=== PATIENT | male | born 1975 | race African-American/Black ===

== ENCOUNTER 2017-08-28 01:08 | Inpatient (IN) | payer MEDICAID ==
[2017-08-28] MEDS ORDERED: NITROGLYCERIN 0.4 MG BTL SL ONE (01:20)
--- NOTE | 2017-08-28 01:21 | EDPHY ---
H & P HPI/ROS: Chief Complaint: Chest pain HPI: 42-year-old male with a history of coronary artery disease, schizophrenia went [facility] tenderness evening because he has run out of his psych meds. There he had told them if he been having chest pain since yesterday morning. Patient states that he had started developing chest pain while shoveling snow yesterday morning. Is been constant but intermittent since that time. He states that he had a heart attack wall [place], [facility] 2 years ago. At that time he had a catheterization and had stents placed. Pain is about a 5/10. Is worse when he exerts himself. He has a family history of coronary artery disease. He also smokes cigarettes. He is been in [place] for about 2 months. He states that he tried to go to the [facility] earlier yesterday evening but they were closed. No nausea or vomiting. Some shortness of breath. Paramedics state that the patient was diaphoretic on arrival. He was given 324 mg of aspirin by EMS. ROS: 10 point Review of Systems is negative except as noted in the HPI. PMH: Coronary artery disease status post NH, schizophrenia Social History: Positive smoking, no alcohol, no recreational drug use Family History: non-contributory Physical Exam: Gen: Awake, Alert, No Distress, morbidly obese HEENT: Nose: no rhinorrhea Eyes: PERRLA, EOMI Mouth: Moist mucosa Neck: Supple, no JVD Chest: nontender, lungs clear to auscultation Heart: S1, S2 normal, no murmur Abd: Soft, non-tender, no guarding Back: no CVA tenderness, no midline tenderness Ext: no edema, non-tender Skin: no rash Neuro: CN II-XII intact, Sensation grossly intact, Strength 5/5 in bilateral upper and lower extremities Constitutional: Initial Vital Signs Temperature (C) 37.3 C 08/28/17 01:28 Heart Rate 110 H 08/28/17 01:28 Respiratory Rate 20 08/28/17 01:28 Blood Pressure 156/97 H 18 01:28 O2 Sat (%) 95 08/28/17 01:28 O2 Delivery Mode Room Air Allergies/Adverse Reactions: No Known Allergies Allergy (Unverified 08/28/17 01:28) Home Medications: Medication Instructions Recorded NK [No Known Home Meds] 08/28/17 Medical Decision Making - Diagnostics EKG Interpretation: ECG time 1:24 a.m., he has sinus tachycardia with a rate of 109, there are T- wave inversions with some small amount of ST depression in leads to 3 and AVF. No acute ST elevations. Imaging Results: Chest x-ray is limited by body habitus. There is cardiomegaly. No acute infiltrate or evidence of CHF. Imaging: I viewed and interpreted images myself ED Course/Re-evaluation: 42-year-old male presenting with chest pain intermittently since yesterday. Has a history of coronary artery disease. ECG is not normal. Troponin is negative. Will admit to the hospital for further evaluation. - Data Points Laboratory Results: Laboratory Results 08/28/17 01:20 08/28/17 01:20 08/28/17 08/28/17 01:20 01:20 WBC 7.47 10^3/uL 10^3/uL (3.80-9.50) RBC 5.67 10^6/uL 10^6/uL (4.40-6.38) Hgb 16.1 g/dL g/dL (13.7-17.5) Hct 49.0 % % (40.0-51.0) MCV 86.4 fL fL (81.5-99.8) MCH 28.4 pg pg (27.9-34.1) MCHC 32.9 g/dL g/dL (32.4-36.7) RDW 14.1 % % (11.5-15.2) Plt Count 343 10^3/uL 10^3/uL (150-400) MPV 10.1 fL fL (8.7-11.7) Neut % (Auto) 70.4 % % (39.3-74.2) Lymph % (Auto) 15.4 % % (15.0-45.0) Dixie % (Auto) 12.4 % % (4.5-13.0) Eos % (Auto) 1.1 % % (0.6-7.6) Baso % (Auto) 0.4 % % (0.3-1.7) Nucleat RBC Rel Count 0.0 % % (0.0-0.2) Absolute Neuts (auto) 5.26 10^3/uL 10^3/uL (1.70-6.50) Absolute Lymphs (auto) 1.15 10^3/uL 10^3/uL (1.00-3.00) Absolute Monos (auto) 0.93 10^3/uL H 10^3/uL (0.30-0.80) Absolute Eos (auto) 0.08 10^3/uL 10^3/uL (0.03-0.40) Absolute Basos (auto) 0.03 10^3/uL 10^3/uL (0.02-0.10) Absolute Nucleated RBC 0.00 10^3/uL 10^3/uL (0-0.01) Immature Gran % 0.3 % % (0.0-1.1) Immature Gran # 0.02 10^3/uL 10^3/uL (0.00-0.10) Sodium 138 mEq/L mEq/L (135-145) Potassium 4.3 mEq/L mEq/L (3.5-5.2) Chloride 105 mEq/L mEq/L (97-110) Carbon Dioxide 17 mEq/l L mEq/l (22-31) Anion Gap 16 mEq/L mEq/L (8-16) BUN 17 mg/dL mg/dL (7-23) Creatinine 0.8 mg/dL mg/dL (0.7-1.3) Estimated GFR > 60 Glucose 112 mg/dL H mg/dL (70-100) Calcium 9.6 mg/dL mg/dL (8.5-10.4) Troponin I < 0.012 ng/mL ng/mL (0.000-0.034) Medications Given: Discontinued Medications Nitroglycerin (Nitrostat) 0.4 mg SL EDNOW ONE Stop: 08/28/17 01:21 Last Admin: 08/28/17 01:51 Dose: 1 tab Departure - Departure Disposition: [facility] In[facility] Acute Clinical Impression: Chest pain Condition: Fair Referrals: Patient,NotPresent [Unknown] - As per Instructions
--- NOTE | 2017-08-28 01:27 | CPEKG ---
Heart Rate: 109 RR Interval: 550 P-R Interval: 156 QRSD Interval: 94 QT Interval: 356 QTC Interval: 480 P Kite: 70 QRS Kite: 86 T Wave Kite: -31 EKG Severity - ABNORMAL ECG - EKG Impression: SINUS TACHYCARDIA EKG Impression: ABNORMAL T, CONSIDER ISCHEMIA, INFERIOR LEADS EKG Impression: BORDERLINE PROLONGED QT INTERVAL Electronically Signed By: Nahun Salazar 28-Aug-2017 02:44:10
[2017-08-28 01:31] LABS: PLATELET COUNT 343 10^3/uL (150-400)
[2017-08-28] MEDS ORDERED: ONDANSETRON 4 MG/2 ML VIAL IVP PRN (02:10)
[2017-08-28] MEDS ORDERED: ONDANSETRON DISINTEGRATING 4 MG TAB PO PRN (02:10)
[2017-08-28] MEDS ORDERED: ACETAMINOPHEN 325 MG TAB PO PRN (02:10)
--- NOTE | 2017-08-28 02:37 | PDGENHP ---
History and Physical - Chief Complaint Chest pain - History of Present Illness 42 yo M w/ hx of CAD and schizophrenia presents after episode of chest pain. Patient is moderately decompensated from a psychiatric standpoint so obtaining history was difficult; however, his thinking is organized enough to provide some details. He explains that he had a heart attack at age 40. He has family hx of CAD in his father. He reports he had two stents placed and was prescribed Plavix, a statin, and nitroglycerin. He has not had these meds for some time although he thinks he is still supposed to be on them. He missed an appointment with [facility] today for psychiatric medication. He thinks he was previously on Prozac, Klonopin, and Seroquel but is not certain. While in the ED he describes an episode of chest pain that occurred while shoveling snow yesterday morning. He has a difficult time characterizing the episode due to disorganized thought. He is currently chest pain free. He is oriented but with some disorganized thinking and admits to hearing voices and seeing shadows. He denies SI/HI. History Information - Allergies/Home Medication List Allergies/Adverse Reactions: No Known Allergies Allergy (Unverified 08/28/17 01:28) Home Medications: NK [No Known Home Meds] 08/28/17 [Last Taken Unknown] I have personally reviewed and updated: family history, medical history - Past Medical History coronary artery disease (UT at age 40 with 2 stents placed) - Family History Positive for: CAD - Social History Smoking Status: Current every day smoker Review of Systems Review of Systems: ROS: 10pt was reviewed & negative except for what was stated in HPI & below Physical Exam Physical Exam: Temp Pulse Resp BP Pulse Ox 37.3 C 111 H 16 140/83 H 93 08/28/17 01:33 08/28/17 02:29 08/28/17 02:29 08/28/17 02:29 08/28/17 02:29 Constitutional: not in pain, obese Eyes: PERRL, EOMI Ears, Nose, Mouth, Throat: moist mucous membranes, no oral mucosal ulcers Cardiovascular: regular rate and rhythym, no murmur, rub, or gallop Respiratory: no respiratory distress, clear to auscultation Gastrointestinal: normoactive bowel sounds, soft, non-tender abdomen Skin: warm, normal color Musculoskeletal: full muscle strength, no muscle tenderness Neurologic: AAOx3, CN II-XII Intact Psychiatric: flat affect, other (Disorganized thinking, +hallucinations), No suicidal ideation, No agitated Lab Data & Imaging Review 08/28/17 01:20 08/28/17 01:20 WBC 7.47 10^3/uL (3.80-9.50) 08/28/17 01:20 RBC 5.67 10^6/uL (4.40-6.38) 08/28/17 01:20 Hgb 16.1 g/dL (13.7-17.5) 08/28/17 01:20 Hct 49.0 % (40.0-51.0) 08/28/17 01:20 MCV 86.4 fL (81.5-99.8) 08/28/17 01:20 MCH 28.4 pg (27.9-34.1) 08/28/17 01:20 MCHC 32.9 g/dL (32.4-36.7) 08/28/17 01:20 RDW 14.1 % (11.5-15.2) 08/28/17 01:20 Plt Count 343 10^3/uL (150-400) 08/28/17 01:20 MPV 10.1 fL (8.7-11.7) 08/28/17 01:20 Neut % (Auto) 70.4 % (39.3-74.2) 08/28/17 01:20 Lymph % (Auto) 15.4 % (15.0-45.0) 08/28/17 01:20 Cotton % (Auto) 12.4 % (4.5-13.0) 08/28/17 01:20 Eos % (Auto) 1.1 % (0.6-7.6) 08/28/17 01:20 Baso % (Auto) 0.4 % (0.3-1.7) 08/28/17 01:20 Nucleat RBC Rel Count 0.0 % (0.0-0.2) 08/28/17 01:20 Absolute Neuts (auto) 5.26 10^3/uL (1.70-6.50) 08/28/17 01:20 Absolute Lymphs (auto) 1.15 10^3/uL (1.00-3.00) 08/28/17 01:20 Absolute Monos (auto) 0.93 10^3/uL (0.30-0.80) H 08/28/17 01:20 Absolute Eos (auto) 0.08 10^3/uL (0.03-0.40) 08/28/17 01:20 Absolute Basos (auto) 0.03 10^3/uL (0.02-0.10) 08/28/17 01:20 Absolute Nucleated RBC 0.00 10^3/uL (0-0.01) 08/28/17 01:20 Immature Gran % 0.3 % (0.0-1.1) 08/28/17 01:20 Immature Gran # 0.02 10^3/uL (0.00-0.10) 08/28/17 01:20 Sodium 138 mEq/L (135-145) 08/28/17 01:20 Potassium 4.3 mEq/L (3.5-5.2) 08/28/17 01:20 Chloride 105 mEq/L (97-110) 08/28/17 01:20 Carbon Dioxide 17 mEq/l (22-31) L 08/28/17 01:20 Anion Gap 16 mEq/L (8-16) 08/28/17 01:20 BUN 17 mg/dL (7-23) 08/28/17 01:20 Creatinine 0.8 mg/dL (0.7-1.3) 08/28/17 01:20 Estimated GFR > 60 08/28/17 01:20 Glucose 112 mg/dL (70-100) H 08/28/17 01:20 Calcium 9.6 mg/dL (8.5-10.4) 08/28/17 01:20 Troponin I < 0.012 ng/mL (0.000-0.034) 08/28/17 01:20 Visualized and Interpreted EKG results: Yes EKG Interpretation: Positive for: other (Inferior T wave abnormalities) Assessment & Plan Assessment: 42 yo M w/ CAD and schizophrenia presents with chest pain and decompensated psychiatric disease. Plan: 1. Chest pain - Difficult to clearly characterize episode due to patient's mental health disease. He does convincingly describe prior hx of CAD with stenting. Noting hx of CAD, medication non-compliance, onset of pain with exercise, obesity, and ongoing tobacco use the risk is high enough to warrant inpatient risk stratification. Initial troponin negative and ECG (poor quality) with inferior T wave abnormalities. - Monitor on telemetry, trend cardiac enzymes - Will repeat ECG in AM - Will order nuclear stress study 2. Hx CAD - Patient reports UT at age 40 with 2 stents placed. He was previously on Plavix, statin, and NTG. - Acute work-up as above - Will benefit from at least ASA and statin on discharge 3. Schizophrenia - Appears moderately decompensated at this time with disorganized thought and active hallucinations. Patient is calm and denies SI/ HI. He thinks he may have been on Prozac, Klonopin, and Seroquel in the past but is not certain. - Will order Zyprexa 5 mg x1 for now for temporary relief - Psychiatry consult in the morning Diet - NPO pending risk stratification Code - Full Ppx - LMWH Dispo - Admit to PCU under observation status
[2017-08-28] MEDS ORDERED: OLANZapine 5 MG TAB PO ONE (02:46)
[2017-08-28 05:07] LABS: PLATELET COUNT 340 10^3/uL (150-400)
--- NOTE | 2017-08-28 08:46 | CPEKG ---
Heart Rate: 106 RR Interval: 566 P-R Interval: 156 QRSD Interval: 92 QT Interval: 352 QTC Interval: 468 P Nikolski: 77 QRS Nikolski: 60 T Wave Nikolski: -17 EKG Severity - ABNORMAL ECG - EKG Impression: SINUS TACHYCARDIA EKG Impression: ATRIAL PREMATURE COMPLEX EKG Impression: NONSPECIFIC T ABNORMALITIES, INFERIOR LEADS Electronically Signed By: Lg Jiménez 28-Aug-2017 19:16:03
[2017-08-28] MEDS ORDERED: ENOXAPARIN 40 MG/0.4 ML SYR SC SCH (09:00)
--- NOTE | 2017-08-28 10:03 | HOSPPROG ---
Hospitalist Progress Note Assessment/Plan: # chest pain - high risk given history of stents - cards consult # CAD - stents 2 years ago - does not appear to be on appropriate meds # schizophrenia - very disorganized; endorses ongoing SI to me; off meds for some time - I think he is gravely disabled and represents a risk to himself - M1 hold, TLC eval when medically cleared; need psychiatry input regarding meds Objective: Vital Signs Temp Pulse Resp BP Pulse Ox 36.6 C 109 H 16 127/84 H 94 08/28/17 03:07 08/28/17 03:07 08/28/17 03:07 08/28/17 03:07 08/28/17 03:07 Laboratory Results 08/28/17 04:30 08/28/17 04:30 ICD10 Worksheet Patient Problems: Problems Problem Status Onset Chest pain Acute
[2017-08-28] MEDS: ATORVASTATIN CALCIUM 20 MG TAB PO SCH (10:26)
[2017-08-28] MEDS: CHLORTHALIDONE 25 MG TAB PO SCH (10:54)
[2017-08-28] MEDS: ASPIRIN EC 81 MG TAB PO SCH (11:34)
--- NOTE | 2017-08-28 11:45 | GCON ---
[f rep st] CONSULTATION DATE OF CONSULTATION: 08/28/2017 REASON FOR CONSULTATION: We were asked by Dr. Oleg Whitney to evaluate this patient for his epis ode of chest pain. HISTORY OF PRESENT ILLNESS: The patient is a 42-year-old male with apparently schizophrenia, who was admitted via the emergency department for chest pain. He reports having stents placed in 2016, just prior to leaving [place]. He describes to me, having a heart attack there. Patient is somewhat dis organized in his speech but does answer questions appropriately. He reports he has been off and on h omeless in [place] since 2016. He has been working as a area coordinator and last night was on the street and noted an episode of chest pain. He describes coming in not only due to the chest pain, but also felt like he was getting "frostbite." He denies any recurrent episodes of chest pain since what he asserts as a heart attack in 2016. He has not described any shortness of breath, presyncope, or sync ope. It is unclear if he has been compliant with his medications. PAST MEDICAL HISTORY: 1. CAD. 2. Schizophrenia. 3. Hypertension. 4. Dyslipidemia. FAMILY HISTORY: Coronary artery disease with father dying of a heart attack. SOCIAL HISTORY: Patient is homeless. He reports daily tobacco abuse. REVIEW OF SYSTEMS: As per HPI. A complete 10-point review of systems was obtained and is negative e xcept for what is dictated. Home medications are listed as amlodipine, chlorthalidone, atorvastatin, and amitriptyline. ALLERGIES: No known drug allergies. PHYSICAL EXAMINATION: VITAL SIGNS: BP of 159/101, heart rate of 107, respirations 18, O2 saturation 98% on room air. GENERAL: He is an male, obese, does not make eye contact. HEENT : Eyes are without scleral icterus. ENT: Mucous membranes are moist. HEART: Distant heart sounds with regular rate and rhythm. LUNGS: Diminished but clear. ABDOMEN: Obese, nontender, with normo active bowel sounds. SKIN: Warm and dry. PSYCH: Flat affect. Does not make eye contact. LABORATORY DATA: BMP with sodium 137, potassium 4.2, chloride 104, CO2 was 17, BUN 15, creatinine 0. 8, glucose of 98, magnesium 2.1. Troponins negative x2. Triglycerides 118, total cholesterol 137, H DL of 48, LDL of 66. CBC with WBC 6.87, hemoglobin 15.7, hematocrit 47.4, platelet count of 340. Te lemetry reviewed: There have been no events noted. A 12-lead ECG, personally interpreted, demonstra edward sinus tachycardia with a heart rate of [address]-T wave abnormalities. I discussed patient's care with Dr. Whitney. Chest x-ray from 08/28/2017, shows poor inspiration but no pneumonia or pleural effusion. IMPRESSION AND PLAN: The patient is a 42-year-old male, who is admitted with chest pain. It was dif ficult to elicit a description of his chest pain. 1. Chest pain. He describes a history of coronary artery disease. He has a negative ECG and enzyme s for acute myocardial infarction. We will proceed to nuclear stress testing with treadmill for furt her risk stratification. He should be optimized on medical therapy, including aspirin, which was not listed in his home medications. His blood pressure is also above goal. 2. Hypertension. Blood pressures have been elevated. Upon review of what is listed as his home med ications, he has listed amlodipine and chlorthalidone. Potentially JAYNE inhibitor or beta-lanre can be added to his medical regimen. We are starting him on aspirin therapy. 3. Dyslipidemia. LDL appears well controlled. More recommendations to follow further testing. /[id number]/MODL
[2017-08-28] MEDS ORDERED: REGADENOSON 0.4 MG/5 ML SYR IVP ONE (14:59)
--- NOTE | 2017-08-28 16:08 | PDCARST ---
CAR Stress Test Results Type of Stress Test: Lexiscan stress test Indication: chest pain Description of Procedure: After informed consent was obtained, pt was established to ECG, blood pressure, HR and oximetry monitoring. STRESS EKG AND HEMODYNAMIC DATA. Resting heart rate: 104 BPM. Resting ECG: SR. Resting blood pressure: 152/86 mmHg. O2 saturation at rest: 93%. Peak heart rate: 113 BPM. Peak blood pressure: 169/53 mmHg. Arrhythmias: none. Symptoms: The patient experienced no typical symptoms of angina during stress or recovery. Stress/Infusion ECG: No change in rhythm with no significant ST/T wave changes. Stress/infusion O2 saturation: 93% Impression: Uneventful Lexiscan infusion. Conclusion: Await nuclear images.
[2017-08-28] MEDS: ENOXAPARIN 60 MG/0.6 ML SYR SC SCH (20:49)
[2017-08-28] MEDS: AMITRIPTYLINE HCL 50 MG TAB PO SCH (20:50)
[2017-08-29] MEDS: ASPIRIN EC 81 MG TAB PO SCH (08:02)
[2017-08-29] MEDS: CHLORTHALIDONE 25 MG TAB PO SCH (08:03)
[2017-08-29] MEDS: ATORVASTATIN CALCIUM 20 MG TAB PO SCH (08:04)
[2017-08-29] MEDS: ENOXAPARIN 60 MG/0.6 ML SYR SC SCH ×2 (08:05→21:55)
[2017-08-29] MEDS ORDERED: IOPAMIDOL (ISOVUE 370) 100 ML BTL IV ONE (10:38)
--- NOTE | 2017-08-29 12:34 | ASMTCASEMG ---
Living Arrangements What is your living Answers: Alone arrangement? Who do you live with? Type Of Residence What kind of residence do Answers: Homeless you live in? Discharge Plan Comments Coordination Status Comments Notes: Patient is a 42yo single male with schizophrenia who presented with chest pain and a family hx for heart problems. Patient had 2 stents placed at age 40. Patient is on an M1 hold due to being moderately decompensated from a psychiatric standpoint. Patient has med cleared and TLC was contacted to get in touch with [facility] for the eval. CM will follow. Date Signed: 08/29/2017 12:34 PM Electronically Signed By:Jenn Robertson LCSW
[2017-08-29] MEDS ORDERED: NS 1,000 ML IV ONE (12:52)
--- NOTE | 2017-08-29 12:57 | HOSPPROG ---
Hospitalist Progress Note Assessment/Plan: # chest pain - negative stress, negative (though slightly non-diagnostic) CTA # tachycardia - unclear precipitant - doubt PE as CP completely resolved - trial of 1L NS - check echo, TSH - recheck labs tomorrow # CAD - stents 2 years ago - cont asa/statin - needs BB but do not want to cloud picture with tachycardia at this point # schizophrenia - much more organized today; will still continue M1 and request TLC consult when medically cleared Subjective: still tachycardic; denies CP Objective: Vital Signs Temp Pulse Resp BP Pulse Ox 36.6 C 100 19 163/98 H 94 08/29/17 11:48 08/29/17 11:48 08/29/17 11:48 08/29/17 11:48 08/29/17 11:48 Laboratory Results 08/28/17 04:30 08/28/17 04:30 08/28/17 08/29/17 08/30/17 05:59 05:59 05:59 Intake Total 1250 Output Total 700 Balance 550 - Physical Exam Constitutional: no apparent distress, other (obese) Eyes: anicteric sclera Ears, Nose, Mouth, Throat: hearing normal Cardiovascular: No edema Respiratory: no respiratory distress Gastrointestinal: No distension Genitourinary: No galvan in urethra Skin: warm Musculoskeletal: full muscle strength Neurologic: AAOx3 Psychiatric: interacting appropriately ICD10 Worksheet Patient Problems: Problems Problem Status Onset Chest pain Acute
--- NOTE | 2017-08-29 12:58 | ASMTCMCOM ---
CM Note CM Note Notes: Dr. Whitney rescinded the med clearance on patient due to new medical concerns. TLC was contacted to let them know patient is not ready for his eval yet. TLC will contact [facility]. CM will follow. Date Signed: 08/29/2017 12:57 PM Electronically Signed By:Jenn Robertson LCSW
[2017-08-29] MEDS: clonazePAM 0.5 MG TAB PO SCH ×2 (13:09→21:55)
--- NOTE | 2017-08-29 15:20 | PDMN ---
Medical Necessity Medical necessity: Change to IP, as of 08/29/17, per MD; Pt gravely disabled & endorses suicidal ideations; on M1 hold; meets IP criteria. Admit to ICU for close monitoring & Psych consult, as well as tx of tachycardia requiring further workup; hx schizophrenia & CAD s/p stents; per progress note & order
--- NOTE | 2017-08-29 15:25 | ECHO ---
[email or web address] [address] [address] Main: [phone] Fax: [email or web address] Echocardiogram Name: JUSTO AGRAWAL MR#: [id number] Study Date: 08/29/2017 Study Time: 01:26 PM Date of : 1975 Age: 42 year(s) Height: 182.9 cm (72 in.) Weight: 172.82 kg (381 lb.) BSA: 2.8 m2 Gender: Male Examination: Echo Indication: Tachycardia Image Quality: Contrast: Requested by: Oleg Whitney BP: 154 mmHg/91 mmHg Heart Rate: Rhythm: Tachycardia Indication: Tachycardia Procedure Staff Pulling Unit Operator: Tyler Ambriz RDCS Reading Physician: Aysha Rosa Requesting Provider: Conclusions: Normal size left ventricle. Mild concentric LV hypertrophy. Normal global systolic LV function. EF is 75 %. No regional wall motion abnormality. Normal size right ventricle. Normal RV function. No significant valvular disease. No prior echo Measurements: Chambers Valvular Assessment AV/MV Valvular Assessment TV/PV Normal Normal Normal Name Value Range Name Value Range Name Value Range Ao Sridevi (MM): 3.9 cm (2.2 cm-3.7 AV Vmax: 1.25 m/s (1 m/s-1.7 PV Vmax: 1.10 m/s (0.6 m/s-0.9 cm) m/s) m/s) IVSd (2D): 1.0 cm (0.6 cm-1.1 AV maxP mmHg ( - ) PV PGmax: 5 mmHg ( - ) cm) LVOT Vmax: 1.02 m/s (0.7 m/s-1.1 LVDd (2D): 5.6 cm (4.2 cm-5.9 m/s) cm) MV E Vmax: 1.03 m/s ( - ) LVDs (2D): 3.1 cm (2.1 cm-4 MV A Vmax: 1.02 m/s ( - ) cm) MV E/A: 1.01 ( - ) LVPWd (2D): 1.2 cm (0.6 cm-1 cm) LVEF (2D): 75 (>=54 %) Continued Measurements: Chambers Valvular Assessment AV/MV Name Value Name Value LADs Lon.6 cm MV E/E' Septal: 17.90 Patient: JUSTO AGRAWAL Study Date: 08/29/2017 Page 1 of 2 01:26 PM LA Area: 20.6 cm2 MV E/E' Lateral: 11.50 Findings: Left Ventricle: Normal size left ventricle. Mild concentric LV hypertrophy. Normal global systolic LV function. EF is 75 %. No regional wall motion abnormality. Right Ventricle: Normal size right ventricle. Normal RV function. Left Atrium: The left atrium is normal in size. Right Atrium: The right atrium is normal in size. Mitral Valve: The mitral valve is normal in appearance and function. There is no mitral valve regurgitation. Aortic Valve: The aortic valve is tri-leaflet and functions normally. Tricuspid Valve: The tricuspid valve is normal in appearance and function. Pulmonic Valve: The pulmonic valve is normal in appearance and function. Aorta: The aorta is normal. Pericardium: No pericardial effusion. (No Signature Object) Patient: JUSTO AGRAWAL Study Date: 08/29/2017 Page 2 of 2 01:26 PM [id number]
[2017-08-29] MEDS: FLUoxetine 20 MG CAP PO SCH (16:10)
[2017-08-29] MEDS ORDERED: PRAZOSIN HCL 1 MG CAP PO SCH (21:00)
[2017-08-29] MEDS: AMITRIPTYLINE HCL 50 MG TAB PO SCH (21:55)
[2017-08-30 06:03] LABS: PLATELET COUNT 255 10^3/uL (150-400)
[2017-08-30] MEDS: ENOXAPARIN 60 MG/0.6 ML SYR SC SCH (09:09)
[2017-08-30] MEDS: clonazePAM 0.5 MG TAB PO SCH (09:09)
[2017-08-30] MEDS: CHLORTHALIDONE 25 MG TAB PO SCH (09:09)
[2017-08-30] MEDS: ASPIRIN EC 81 MG TAB PO SCH (09:09)
[2017-08-30] MEDS: FLUoxetine 20 MG CAP PO SCH (09:09)
[2017-08-30] MEDS: ATORVASTATIN CALCIUM 20 MG TAB PO SCH (09:09)
[2017-08-30 09:30] VITALS: BP 137/75; PULSE 95; RESP 19; TEMP 98.8; O2SAT 92
--- NOTE | 2017-08-30 11:34 | ASMTCMCOM ---
CM Note CM Note Notes: Spoke with Kari from [facility] who will be evaluating patient today. She will let me know the disposition of eval as soon as she is finished. CM will follow. Date Signed: 08/30/2017 11:33 AM Electronically Signed By:Jenn Robertson LCSW
--- NOTE | 2017-08-30 16:11 | GDS ---
[f rep st] DISCHARGE SUMMARY FINAL DIAGNOSES: 1. Disorganized thinking due to schizophrenia. 2. Chest pain. 3. History of coronary artery disease, status post stents in 2013. 4. Tachycardia. HOSPITAL COURSE: A 42-year-old man with a history of heart disease presents with chest pain. He had difficulty describing exactly the incidence in which this occurred. He was evaluated with a Lexisca n test which was negative. He had a CT angiogram which was somewhat nondiagnostic given his difficul ty holding his breath; however, there were no segmental pulmonary embolus seen, and suspicion that th ere were no subsegmental. He remained tachycardic for about 24-48 hours; however, this had resolved prior to discharge. This was sinus tachycardia. Suspect that this is more likely anxiety than a jose c e underlying medical reason. He was somewhat disorganized when I first met him. Because of this, I put him on an M1 hold. After he was medically cleared, he was seen by [facility], who recommended Inpatient Psychiatry for stabilization. He will be discharged from here to [address] [place] [address]. He is comfor table with this plan and accepting of this. RECOMMENDATIONS: For his underlying heart disease including coronary artery disease with 2 stents, I recommend that he follow up with Cardiology. I have given him a referral to see MOLLY Da Silva, who he saw here in about 1 month to establish care. He clearly needs a local core cutter. I have started him on aspirin and continued his statin. I spent more than 30 minutes on the day of discharge coordinating care. /[id number]/MODL
== END 2017-08-30 17:15 | DRG 313 ==
LOC: EEVIPCON 02:10 → F2W 02:42 → F2N 10:09 → OBSVTOIN 08-29 12:57
PROVIDERS: ADMIT Student in an Organized Health Care Education/Training Program; ATTEND Student in an Organized Health Care Education/Training Program
DX: R07.9 Chest pain, unspecified (principal); F20.9 Schizophrenia, unspecified; I25.10 Atherosclerotic heart disease of native coronary artery without angina pectoris; R00.0 Tachycardia, unspecified; I25.2 Old myocardial infarction; E66.9 Obesity, unspecified; Z72.0 Tobacco use; Z59.0 Homelessness; Z95.5 Presence of coronary angioplasty implant and graft
CPT/HCPCS: A9500; G0378; J1650; J2785; Q9967

== ENCOUNTER 2017-08-30 17:10 | Inpatient (IN) | payer MEDICAID ==
[2017-08-30] MEDS ORDERED: MAGNESIUM HYDROXIDE 30 ML UDCUP PO PRN (18:26)
[2017-08-30] MEDS ORDERED: MAG HYDROX/AL HYDROX/SIMETH 30 ML UDCUP PO PRN (18:26)
[2017-08-30] MEDS: PRAZOSIN HCL 1 MG CAP PO SCH (21:52)
[2017-08-30] MEDS: clonazePAM 0.5 MG TAB PO SCH (21:53)
[2017-08-31] MEDS: ACETAMINOPHEN 325 MG TAB PO PRN (02:53)
[2017-08-31] MEDS: LORazepam 0.5 MG TAB PO PRN ×3 (02:53→20:06)
[2017-08-31] MEDS: amLODIPine BESYLATE 5 MG TAB PO SCH (08:14)
[2017-08-31] MEDS: FLUoxetine 20 MG CAP PO SCH (08:17)
[2017-08-31] MEDS: clonazePAM 0.5 MG TAB PO SCH ×2 (08:18→22:08)
[2017-08-31] MEDS: CHLORTHALIDONE 25 MG TAB PO SCH (08:18)
[2017-08-31] MEDS: ATORVASTATIN CALCIUM 20 MG TAB PO SCH (08:19)
[2017-08-31] MEDS: ASPIRIN EC 81 MG TAB PO SCH (08:20)
[2017-08-31] MEDS ORDERED: PNEUMOCOCCAL 0.5ML VACCINE VIAL IM ONE (10:01)
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
--- NOTE | 2017-08-31 17:36 | BCON ---
[f rep st] BEHAVIORAL HEALTH CONSULTATION INTERNAL MEDICINE CONSULTATION DATE OF CONSULTATION: 08/31/2017 REFERRING PHYSICIAN: Wade Layne MD REASON FOR REFERRAL: Medical clearance for inpatient behavioral [facility] stay. HISTORY OF PRESENT ILLNESS: [facility] for which he was admitted to [facility]. There, he was noted to be mentally disorganized and was put on an M1 hold. After he had been fully evaluated for the chest pain, he was transferred to [facility] for further psychiatric care. He currently has no acute complaints though he reports that he is "working to get my mind calibrated." PAST MEDICAL HISTORY: Coronary artery disease, status post OR. Schizophrenia. PAST SURGICAL HISTORY: He had coronary artery stenting approximately 2 years ago. MEDICATIONS: He was not taking any medications prior to admission. ALLERGIES: There are no known drug allergies. SOCIAL HISTORY: He is currently homeless. He has been in [place] approximately 2 years. He came here with his brother. He is a cigarette smoker. FAMILY HISTORY: Noncontributory for the purposes of this evaluation. REVIEW OF SYSTEMS: He reports he has been trying to lose weight, but has not had weight loss. He denies fevers, chills, cough, dyspnea. Chest pain has resolved. There are no palpitations. He reports that he snores and he reports that he does not feel refreshed when he awakens in the morning. He denies nausea , vomiting, constipation, or diarrhea. Otherwise, a 10-point review of systems is negative. PHYSICAL EXAM: VITAL SIGNS: Blood pressure is 132/71, heart rate is 94, respiratory rate is 16, oxygen saturation is 97% on room air, temperature is 36.4 degrees centigrade. His weight is 172.8 kg for a body mass index of 51. GENERAL: This is an extremely obese man ambulating in the hallway. We go to his room for the medical evaluation and he sits in a chair, appears his chronologic age. HEENT: Extraocular movements are intact. Mucous membranes are moist. He has a crowded airway, Mallampati class 3. Dentition is in good condition. NECK: Full and supple. HEART: There is a regular rate and rhythm with no murmurs, rubs , or gallops. LUNGS: Clear to auscultation bilaterally. ABDOMEN: Benign. EXTREMITIES: There is no cyanosis or clubbing. There is 1+ edema bilaterally to the lower extremities. NEUROLOGIC: He is alert and oriented x3. Cranial nerves 2 -12 are grossly intact. There is no focal weakness. Sensation is intact to light touch. Gait is somewhat wide-based, otherwise within normal limits. LABORATORY STUDIES: From his recent stay in the hospital: CBC was overall within normal limits. On the day before transfer, he had a very slightly low WBC count at 3.52 of no clinical significance. Coagulation studies revealed an elevated D-dimer. Serum chemistry on 08/30, revealed normal renal function and electrolytes. AST was elevated at 107, and ALT at 74. He had a slightly low albumin of 3.4. Liver function tests were otherwise within normal limits. Troponins were negative. Lipid panel was benign with a total cholesterol of 137 , an LDL of 66 and an HDL of 48. TSH was normal at 2.54. He had a CT angiogram to exclude pulmonary embolus as a cause of the chest pain. He was not compliant with holding his breath. There were no segmental pulmonary emboli. Subsegmental pulmonary emboli could not be completely excluded. EKG showed normal sinus rhythm with a nonspecific intraventricular conduction delay. Chest x-ray showed poor inspiration and cardiomegaly. Echocardiogram was read as normal with an ejection fraction of 75%. There was no comment made regarding diastolic function or pulmonary artery pressures. ASSESSMENT/RECOMMENDATIONS: 1. Schizophrenia with decompensation and medical noncompliance, pending further evaluation and management per Psychiatry and the mental health team. 2. Obesity. Consider avoiding medications that would cause further weight gain ; however, psychosocial stabilization takes priority at this time. 3. Tobacco dependence syndrome: Encouraged smoking cessation. 4. Coronary artery disease, status post stenting. 5. Risk for sleep apnea. Advise a sleep study after discharge. I see no medical contraindications to this patient's continued stay on the inpatient behavioral health unit or to any psychiatric medications or procedures. Thank you very much for including me in the care of this patient and please do not hesitate to contact me or the hospitalist service should there be need for further medical evaluation. /[id number]/MODL MTDD
[2017-08-31] MEDS: OLANZapine DISINTEGR 10 MG TAB PO PRN (20:04)
[2017-08-31] MEDS: PRAZOSIN HCL 1 MG CAP PO SCH (22:08)
[2017-09-01] MEDS: clonazePAM 0.5 MG TAB PO SCH ×2 (08:22→18:48)
[2017-09-01] MEDS: FLUoxetine 20 MG CAP PO SCH (08:22)
[2017-09-01] MEDS: CHLORTHALIDONE 25 MG TAB PO SCH (08:22)
[2017-09-01] MEDS: amLODIPine BESYLATE 5 MG TAB PO SCH (08:22)
[2017-09-01] MEDS: ASPIRIN EC 81 MG TAB PO SCH (08:22)
[2017-09-01] MEDS: ATORVASTATIN CALCIUM 20 MG TAB PO SCH (08:22)
[2017-09-01] MEDS: OLANZapine DISINTEGR 10 MG TAB PO PRN ×2 (08:25→12:31)
[2017-09-01] MEDS: ACETAMINOPHEN 325 MG TAB PO PRN ×2 (08:25→12:31)
[2017-09-01] MEDS: NICOTINE POLACRILEX 2 MG GUM B PRN (10:41)
--- NOTE | 2017-09-01 11:45 | SOAPPROG ---
SOAP Progress Note Assessment/Plan: Assessment: 42yo AAM with hx of SZA d/o and possibly PTSD also hx of substance use admitted initially medically for r/o MS but then reported SI prior to medical d/c. In [place] x 2yr, from [place]. Homeless. 09/01/17 11:25 per staff, slept 6hr. took prn this AM Pt reports being in hosp ?because I was stressed out, worried I has having a heart attack...that gave me a panic attack" States he likes current meds, finds them helpful, "slept like a rock" last night. Does not want to lose [facility] bed at the detention. Talked of coming from [place] to [place] with brother, was in [place] for some time receiving care at [facility] , then to [facility], now in [place]. Has been homeless, indicated homelessness in [place] was "rough". Admitted to long hx of substance use, mostly cocaine, not recently. more recently THC and admitted coming to [place] in part b/c of legal THC. When discussing meds, pt asked "I would like a prescription for chronic pain...low back, joints, ankles, gout". States he used to take Gabapentin and received medications from [facility]. Sitting comfortably during interview. Engaged, good EC, nml speech, mood "good" , altho a little sleepy. TP/TC- denied any current AH/VH or any SI. no thoughts to harm others. did not appear responding to IS. linear, goal-directed responses. somewhat vague. no delusional thoughts expressed. Plan: -during weekday, contact [facility] for collateral. Seems he was receiving treatment there for some time after arriving in [place] 2 yr ago. -continue current meds. -prob needs outpt sleep study b/c may have MONIK. could try nocturnal pOx for screening -will d/c prn zyprexa and discuss further with pt in am. received 10mg as prn during midday and slept upright on couch most of afternoon. no report of psychosis to staff. Objective: Vital Signs Temp Pulse Resp BP Pulse Ox 36.5 C 96 14 127/65 H 94 09/01/17 05:30 09/01/17 05:30 09/01/17 05:30 09/01/17 05:30 09/01/17 05:30 - Time Spent With Patient Time Spent With Patient: 25min - Pending Discharge Pending Discharge Within 24 Hours: No Pending Discharge Within 48 Hours: No ICD10 Worksheet Patient Problems: Problems Problem Status Onset Chest pain Acute
[2017-09-01] MEDS: PRAZOSIN HCL 1 MG CAP PO SCH (18:48)
[2017-09-01] MEDS: LORazepam 0.5 MG TAB PO PRN (22:21)
[2017-09-02] MEDS: LORazepam 0.5 MG TAB PO PRN (03:55)
[2017-09-02] MEDS: ACETAMINOPHEN 325 MG TAB PO PRN ×2 (05:06→08:52)
[2017-09-02] MEDS: clonazePAM 0.5 MG TAB PO SCH ×2 (08:02→21:13)
[2017-09-02] MEDS: FLUoxetine 20 MG CAP PO SCH (08:02)
[2017-09-02] MEDS: ATORVASTATIN CALCIUM 20 MG TAB PO SCH (08:02)
[2017-09-02] MEDS: amLODIPine BESYLATE 5 MG TAB PO SCH (08:02)
[2017-09-02] MEDS: CHLORTHALIDONE 25 MG TAB PO SCH (08:02)
[2017-09-02] MEDS: ASPIRIN EC 81 MG TAB PO SCH (08:03)
--- NOTE | 2017-09-02 19:42 | SOAPPROG ---
SOAP Progress Note Assessment/Plan: Assessment: 42yo AAM with hx of SZA d/o and possibly PTSD also hx of substance use admitted initially medically for r/o HI but then reported SI prior to medical d/c. In [place] x 2yr, from [place]. Homeless. 09/01/17 11:25 per staff, slept 6hr. took prn this AM Pt reports being in hosp ?because I was stressed out, worried I has having a heart attack...that gave me a panic attack" States he likes current meds, finds them helpful, "slept like a rock" last night. Does not want to lose his bed at the [facility]. Talked of coming from [place] to [place] with brother, was in [place] for some time receiving care at [facility] , then to [facility], now in [place]. Has been homeless, indicated homelessness in [place] was "rough". Admitted to long hx of substance use, mostly cocaine, not recently. more recently THC and admitted coming to [place] in part b/c of legal THC. When discussing meds, pt asked "I would like a prescription for chronic pain...low back, joints, ankles, gout". States he used to take Gabapentin and received medications from [facility]. Sitting comfortably during interview. Engaged, good EC, nml speech, mood "good" , altho a little sleepy. TP/TC- denied any current AH/VH or any SI. no thoughts to harm others. did not appear responding to IS. linear, goal-directed responses. somewhat vague. no delusional thoughts expressed. Plan: -during weekday, contact [facility] for collateral. Seems he was receiving treatment there for some time after arriving in [place] 2 yr ago. -continue current meds. -prob needs outpt sleep study b/c may have MONIK. could try nocturnal pOx for screening -will d/c prn zyprexa and discuss further with pt in am. received 10mg as prn during midday and slept upright on couch most of afternoon. no report of psychosis to staff. 09/02/17 19:18 slept 30min last night. woke up when staff checked noct pOx (97%) and had trouble returning to sleep .pt thinks he slept about 2hrs. did nap on couch most of afternoon sitting up. reports relieved still has [facility] bed, he called today to check. exercising 2x/ day on elliptical machine. denied med s/e or physical complaints at present altho with some mild chronic low back pain and some mild neuropathy sxs in extremities. asked for prn meds this am, unable to state why he felt he needed something. did not have prn zyprexa avail b/c d/cd. denied experiencing any AH/VH or thought d/o. states just wanted a prn "for stress" perhaps b/c didn't sleep well last night. Longest sobriety [id number] at [facility] in [place], [place]. reports was voluntary there. used cocaine before that. Meds then included prozac, prazosin, HTN med, and haldol with cogentin, but reports haldol was d/cd after 6mo and he didn't continue on antipsychotic. Recalls dx as "PTSD, Bipolar, schizophrenia- activity". Long hx of EtOH use d/o, also used cocaine at times, now mostly just THC and this is partly why he came to [place]. Trazodone used to help sleep. Would like for tonight. Also took Gabapentin PRN for pain, and would like this again, prefers scheduled. States Kimmy Oscar has records. Signed OMARI. States he took RISPERDAL as a kid, to help with his focus. (asked if he meant Ritalin, pt stated no, Risperdal). Admits experiencing psychotic sxs in past, not able to clearly state if each time clearly related to substance use, but suspects so. Wondering about med as "prevention". Discussed risks and indications. Asked about restarting STATIN med he used to take. Denied any med s/e. Reports he likes to have goals and work toward them. Per staff, pt had some goals listed in group- taking classes at [facility] online, getting bed [facility], and working 24hr/d. Also to go to [facility] and get a sleep study referral. Asked pt about these goals, he knows working 24hr not realistic, but would like to if he could. Denied any depression or SI, denied AH/VH or other psychotic sxs. mood "fine". affect very slightly irritable but denied feeling this way. States just didn't sleep much last night. Generally engaged, with linear thoughts, no IOR, no delusional thoughts. i/j both seem fair. cognition intact. PLAN: -Trazodone 50mg hs, with additional prn -Monitor for need of any neuroleptic or antipsychotic. reports hx of VIVIAN when young, also several times put on antipsychotic meds in the past, but also w/ subst use hx and hx of psychosis possibly related to subst use, noted with some mild irritability today asking for prn, and yesterday asked for prn for his "head" and received zyprexa. no clear psychotic sxs but reports hx of ptsd/bmd/ szp. Discussed options with patient, he agreed to Risperdal 0.5mg bid avail as prn for now. Prefer this to zyprexa or seroquel b/c of obesity. More records would be helpful, from [facility] and perhaps even [facility] in [place]. -requests to restart Gabapentin as scheduled med for neuropathy which he took as prn in past, will start 300mg BID -wants to restart statin he took as outpt. d/w primary team/hospitalist -plans to establish at [facility], wants referral for sleep study. has had this recommended several times in past he states. Objective: Vital Signs Temp Pulse Resp BP Pulse Ox 36.3 C 111 H 18 168/105 H 91 L 09/02/17 05:08 09/02/17 11:53 09/02/17 11:53 09/02/17 11:53 09/02/17 11:53 - Time Spent With Patient Time Spent With Patient: 35min - Pending Discharge Pending Discharge Within 24 Hours: No Pending Discharge Within 48 Hours: No ICD10 Worksheet Patient Problems: Problems Problem Status Onset Chest pain Acute
[2017-09-02] MEDS ORDERED: traZODone 50 MG TAB PO PRN (19:43)
[2017-09-02] MEDS ORDERED: risperiDONE 0.5 MG TAB PO PRN (19:44)
[2017-09-02] MEDS: traZODone 50 MG TAB PO SCH (21:13)
[2017-09-02] MEDS: PRAZOSIN HCL 1 MG CAP PO SCH (21:13)
[2017-09-02] MEDS: GABAPENTIN 300 MG CAP PO SCH (21:13)
[2017-09-03] MEDS: FLUoxetine 20 MG CAP PO SCH (09:18)
[2017-09-03] MEDS: amLODIPine BESYLATE 5 MG TAB PO SCH (09:18)
[2017-09-03] MEDS: ASPIRIN EC 81 MG TAB PO SCH (09:18)
[2017-09-03] MEDS: clonazePAM 0.5 MG TAB PO SCH ×2 (09:18→21:14)
[2017-09-03] MEDS: GABAPENTIN 300 MG CAP PO SCH ×2 (09:19→21:14)
[2017-09-03] MEDS: CHLORTHALIDONE 25 MG TAB PO SCH (09:19)
[2017-09-03] MEDS: ATORVASTATIN CALCIUM 20 MG TAB PO SCH (09:19)
--- NOTE | 2017-09-03 13:49 | SOAPPROG ---
JULIETA Progress Note Assessment/Plan: Assessment: Plan: 09/03/17 13:49 Schizoaffective D/o: Doing much better. CCM. Likely d/c tomorrow. Subjective: Pt seen, discussed with staff. Reports feeling "pretty good." States, he is "working on it." States he is "about ready to go." Appreciative of the care he has received here. He is agreeable to going to respite bed tomorrow. He has continued to participate actively in therapies, displayed no behavioral disturbances and is compliant with meds. He reports still feeling "a little paranoid." Objective: Vital Signs Temp Pulse Resp BP Pulse Ox 36.3 C 100 14 152/102 H 98 09/03/17 00:30 09/03/17 00:30 09/03/17 00:30 09/03/17 00:30 09/03/17 00:30 MSE: Calm, coop. Affect is euthymic, stable, approp. Mood is "pretty good." TP linear. TC reveals some ongoing paranoia. Denies SI. - Time Spent With Patient Time Spent With Patient: 25" ICD10 Worksheet Patient Problems: Problems Problem Status Onset Chest pain Acute
[2017-09-03] MEDS: traZODone 50 MG TAB PO SCH (21:16)
[2017-09-03] MEDS: PRAZOSIN HCL 1 MG CAP PO SCH (21:16)
[2017-09-04] MEDS: NICOTINE POLACRILEX 2 MG GUM B PRN (01:00)
[2017-09-04] MEDS: LORazepam 0.5 MG TAB PO PRN (03:42)
[2017-09-04 05:20] VITALS: BP 143/74; PULSE 113; RESP 16; TEMP 98.1; O2SAT 94
[2017-09-04] MEDS: ACETAMINOPHEN 325 MG TAB PO PRN (05:37)
[2017-09-04] MEDS: amLODIPine BESYLATE 5 MG TAB PO SCH (08:18)
[2017-09-04] MEDS: ASPIRIN EC 81 MG TAB PO SCH (08:18)
[2017-09-04] MEDS: clonazePAM 0.5 MG TAB PO SCH (08:18)
[2017-09-04] MEDS: FLUoxetine 20 MG CAP PO SCH (08:18)
[2017-09-04] MEDS: ATORVASTATIN CALCIUM 20 MG TAB PO SCH (08:18)
[2017-09-04] MEDS: GABAPENTIN 300 MG CAP PO SCH (08:18)
[2017-09-04] MEDS: CHLORTHALIDONE 25 MG TAB PO SCH (08:19)
--- NOTE | 2017-09-04 14:14 | BDS ---
[f rep st] [facility] DISCHARGE SUMMARY REASON FOR ADMISSION: Patient is a 42-year-old male admitted from the emergency dep artment after having come in complaining of chest pain. He has a history of some coronary artery dis ease with 2 stents placed in the past, at age 38, and was out shoveling snow and was afraid that he m ay be having a heart attack. He was admitted to the ICU where an NM was ruled out, and when they wer e preparing his discharge, he stated that he was suicidal. He was then placed on an M1 hold and a TL C consultation was requested. TLC recommended further psychiatric evaluation and hospitalization, an d he was transferred to the [facility] inpatient unit on at [address] [facility]. Full description of the events preceding admission can be found in his admission history dated 08/31/2017. ADMITTING DIAGNOSES: Schizoaffective disorder by history. Possible posttraumatic stress disorder. Recent suicidality. Homelessness. Obesity. Hypertension. Hyperlipidemia. Coronary artery disease . ADMISSION PHYSICAL EXAMINATION: Performed by Dr. Balta Sheridan revealed no acute physical findings . ADMISSION LABORATORY: No additional labs were drawn, though labs from his hospitalization in the ICU were reviewed. No significant abnormalities were noted. HOSPITAL COURSE: Patient was admitted to the [facility] inpatient unit on an M1 hold. He was pleasant, cooperative, and participated actively in all interviews and therapies. He stated that he felt unsafe in the community despite having been homeless for some time, and knowing the ins and outs of the nursing home and the other resources in the community. He stated initially that he was he aring voices telling him to kill himself, though later stated that these had gone away completely by the time he arrived on the unit. He requested to be restarted on his previous outpatient medications which included Prozac, clonazepam, Prazosin, and gabapentin. These were restarted. I discussed wit h him the potential use of an antipsychotic medication, which he declined, stating that they did not help him and that he did better on this regimen. I indicated to him that if he had worsened problems with the auditory hallucinations, we would likely have to use an antipsychotic, and he agreed to thi s but did not report any further hallucinatory experiences during his hospitalization. Patient's hospitalization was uncomplicated. He participated actively in all therapies and was compl iant with all medications. He was pleasant, cooperative, interactive throughout his stay and voiced no thoughts of suicide after the first day. As mentioned above, he did not have any further psychoti c symptoms after admission either. CONDITION AT DISCHARGE: Stable. His affect was euthymic, stable, and appropriate. His mood was rep orted as "really good" and he was looking forward to discharge, to return to the nursing home. He was off ered respite placement, though he declined this at the time of discharge. DISCHARGE MEDICATIONS: Gabapentin 300 mg p.o. twice daily, amlodipine 10 mg p.o. daily, Lipitor 20 m g p.o. daily, prazosin 1 mg p.o. at bedtime, Prozac 20 mg p.o. daily, Klonopin 0.5 mg twice daily, ch lorthalidone 12.5 mg p.o. daily, enteric-coated aspirin 81 mg daily. DISCHARGE DIAGNOSES: Schizoaffective disorder, depressed type, chronic, with acute exacerbation. Obe sity. Cardiac disease. Hyperlipidemia. Homelessness. Lack of supports. Recent suicidality. DISPOSITION: Patient left the hospital of his own accord, to return to the [facility]. FOLLOWUP: With [facility] as scheduled by manager of care. I can confirm that the patient received his discharge instructions and followup appointments at time of discharge. Patient's legal status was converted to voluntary at the expiration of his M1 hold. Patient's attitude was positive at the time of discharge. Patient did not have specific advance directives during his stay though was a full code throughout. There were no pending labs or studies at the time of discharge. /[id number]/MODL
== END 2017-09-04 10:01 | disposition home or self-care (01) | DRG 885 ==
LOC: BBEH 17:10
PROVIDERS: ADMIT Psychiatry & Neurology Psychiatry; ATTEND Psychiatry & Neurology Psychiatry
DX: F25.1 Schizoaffective disorder, depressive type (principal); I25.10 Atherosclerotic heart disease of native coronary artery without angina pectoris; E66.9 Obesity, unspecified; E11.9 Type 2 diabetes mellitus without complications; I10 Essential (primary) hypertension; J45.909 Unspecified asthma, uncomplicated; I25.2 Old myocardial infarction; F17.210 Nicotine dependence, cigarettes, uncomplicated; Z95.5 Presence of coronary angioplasty implant and graft; Z59.0 Homelessness
CPT/HCPCS: G0009

== ENCOUNTER 2017-10-26 16:59 | Emergency (ER) | payer MEDICAID ==
--- NOTE | 2017-10-26 17:25 | EDPHY ---
H & P Smoking Status: Current every day smoker Time Seen by Provider: 10/26/17 17:05 HPI/ROS: CHIEF COMPLAINT: Near-syncope, possible overdose HISTORY OF PRESENT ILLNESS: 42-year-old male presents to the emergency department by ambulance after possible drug overdose. The patient has a history of PTSD and bipolar and has been off of his medications. He has been hearing voices. He apparently restarted his medications today and says "I was trying to get a director diabetes on reality". He admits to taking too many of his pills around 1:00 p.m. today. He states that he was not suicidal or homicidal. He apparently told EMS that he was suicidal. The patient denies suicidal homicidal ideation now. He denies substance abuse or alcohol. He denies chest pain or difficulty breathing. He feels thirsty. He does not feel weak. He was feeling dizzy. He had a near syncopal episode today at the library and was brought to the emergency department for evaluation. No reported trauma. No headache. No nausea or vomiting. REVIEW OF SYSTEMS: Constitutional: No fever, no chills. Eyes: No double or blurry vision. ENT: No sore throat. Respiratory: No cough, no shortness of breath. Cardiac: No chest pain. Gastrointestinal: No abdominal pain, vomiting or diarrhea. Genitourinary: No dysuria. Musculoskeletal: No neck or back pain. Skin: No rashes. Neurological: No headache. (Amina Garner) Past Medical/Surgical History: PTSD, Bipolar (Patsy,Amina M) Social History: Homeless (Patsy,Amina M) Physical Exam: General Appearance: Alert, no distress. 103/73, heart rate 112, Eyes: Pupils equal and round. Extraocular motions are all intact. ENT: Mouth: Mucous membranes are dry appearing. Respiratory: No wheezing, rhonchi, or rales, lungs are clear to auscultation. Cardiovascular: Regular rate and rhythm. Gastrointestinal: Abdomen is soft and nontender, no masses, no rebound or guarding, bowel sounds normal. Neurological: Alert and oriented x 3, cranial nerves II through XII grossly intact Skin: Warm and dry, no rashes. Musculoskeletal: Nontender to palpate along the cervical, thoracic or lumbar spine. Neck is supple. Extremities: Full range of motion and no peripheral edema. Psychiatric: Patient is oriented X 3, there is no agitation. (Amina Garner) Constitutional: Initial Vital Signs Temperature (C) 36.9 C 10/26/17 16:59 Heart Rate 108 H 10/26/17 16:59 Respiratory Rate 16 10/26/17 16:59 Blood Pressure 148/87 H 10/26/17 16:59 O2 Sat (%) 93 10/26/17 16:59 O2 Delivery Mode Room Air O2 (L/minute) 2 Allergies/Adverse Reactions: No Known Allergies Allergy (Unverified 08/28/17 01:28) Home Medications: Medication Instructions Recorded Chlorthalidone [Chlorthalidone 25 12.5 mg PO DAILY #14 tab 09/04/17 mg (*)] FLUoxetine [Prozac 20 MG (*)] 20 mg PO DAILY #30 cap 09/04/17 Gabapentin [Neurontin 300 MG (*)] 300 mg PO BID #60 cap 09/04/17 Prazosin HCl [Minipress 1mg (*)] 1 mg PO HS #30 cap 09/04/17 amLODIPine BESYLATE [Norvasc 10 mg 10 mg PO DAILY #30 tab 09/04/17 (*)] Amitriptyline HCl [Elavil 50 mg 25 - 50 mg PO HS 10/26/17 (*)] Medical Decision Making ED Course/Re-evaluation: 7:00 a.m.-I assumed care of this patient at shift change. History of bipolar disorder, off medications. Plan for CSU placement. 12:30p: accepted to [facility]. EMTALA completed. (Linda Zeng) 42-year-old male who admits to taking too many of his medications as he has a history of PTSD and bipolar and wanted to get rid of the voices. He was restarted on his medications today. The patient has prescriptions that were all filled today, 10/26/2017 for amlodipine 10 mg with 29 of #30 tablets, chlorthalidone 25 mg 13 of #15 tablets, amitriptyline 50 mg 26 of #30 tablets, Fluoxetine 20 mg 28 of #30 tablets, Prazosin 1 mg 25 of #30 tablets, gabapentin 300 mg 52 of #60 tablets. I spoke with Zaki at [facility] at 7:50 p.m., case #[id number], who recommended monitoring for 6 hr from ingestion and repeating his EKG 6 hr post ingestion. Laboratory studies have been drawn iron are within normal limits. Repeat EKG was reviewed by Dr. Dino Bledsoe and revealed normal sinus rhythm and specifically no evidence of widened QRS. 11:12 p.m.: I spoke with mental health [facility]. They feel strongly that he should be placed in a crisis stabilization unit, however the on-call psychiatrist request that he be monitored overnight regarding his blood pressure. He will be re-evaluated in the morning with likely placement in a crisis stabilization unit. (Amina Garner) Differential Diagnosis: Altered mental status including but not limited to hypoglycemia, infectious process, electrolyte abnormality, head injury and intoxicants. (Amina Garner) Other Provider: 0200 care assumed by me pending mental health evaluation. 0700 care signed out to Dr. Zeng pending repeat evaluation. No issues during my care this patient overnight (Nahun Salazar) - Data Points Laboratory Results: Laboratory Results 10/26/17 17:35 10/26/17 17:35 Medications Given: Discontinued Medications Amlodipine Besylate (Norvasc) 10 mg PO EDNOW ONE Stop: 10/27/17 10:17 Last Admin: 10/27/17 10:43 Dose: 10 mg Chlorthalidone (Chlorthalidone) 12.5 mg PO DAILY ONE Stop: 10/28/17 10:16 Last Admin: 10/27/17 10:44 Dose: 12.5 mg Fluoxetine HCl (Prozac) 20 mg PO DAILY ONE Stop: 10/28/17 10:27 Last Admin: 10/27/17 10:44 Dose: 20 mg Gabapentin (Neurontin) 300 mg PO EDNOW ONE Stop: 10/27/17 10:17 Last Admin: 10/27/17 10:44 Dose: 300 mg Sodium Chloride (Ns) 1,000 mls @ 0 mls/hr IV ONCE ONE PRN Reason: Wide Open Stop: 10/26/17 23:49 Last Admin: 10/26/17 23:54 Dose: 1,000 mls Lorazepam (Ativan Injection) 1 mg IVP EDNOW ONE Stop: 10/27/17 01:15 Last Admin: 10/27/17 01:16 Dose: 1 mg Trazodone HCl (Trazodone) 50 mg PO EDNOW ONE Stop: 10/27/17 01:54 Last Admin: 10/27/17 01:55 Dose: 50 mg Departure - Departure Disposition: Other Psych, Not [place] Clinical Impression: Suicidal ideation Condition: Good Referrals: Patient,NotPresent [Primary Care Provider] - As per Instructions
--- NOTE | 2017-10-26 17:27 | CPEKG ---
Heart Rate: 111 RR Interval: 541 P-R Interval: 164 QRSD Interval: 96 QT Interval: 356 QTC Interval: 484 P [place]: 49 QRS [place]: 82 T Wave [place]: -21 EKG Severity - ABNORMAL ECG - EKG Impression: SINUS TACHYCARDIA EKG Impression: NONSPECIFIC T ABNORMALITIES, INFERIOR LEADS EKG Impression: BORDERLINE PROLONGED QT INTERVAL Electronically Signed By: Dino Bledsoe 26-Oct-2017 17:36:35
[2017-10-26 17:44] LABS: PLATELET COUNT 310 10^3/uL (150-400)
--- NOTE | 2017-10-26 20:03 | CPEKG ---
Heart Rate: 81 RR Interval: 741 P-R Interval: 168 QRSD Interval: 90 QT Interval: 400 QTC Interval: 465 P Wall: 49 QRS [place]: 61 T Wave [place]: -2 EKG Severity - NORMAL ECG - EKG Impression: SINUS RHYTHM Electronically Signed By: Dino Bledsoe 26-Oct-2017 20:21:36
[2017-10-26] MEDS: NS 1,000 ML IV ONE (23:54)
[2017-10-27] MEDS: LORazepam 2 MG/ML INJ IVP ONE (01:16)
[2017-10-27] MEDS: traZODone 50 MG TAB PO ONE (01:55)
[2017-10-27] MEDS: amLODIPine BESYLATE 5 MG TAB PO ONE (10:43)
[2017-10-27] MEDS: GABAPENTIN 300 MG CAP PO ONE (10:44)
[2017-10-27] MEDS: CHLORTHALIDONE 25 MG TAB PO ONE (10:44)
[2017-10-27] MEDS: FLUoxetine 20 MG CAP PO ONE (10:44)
--- NOTE | 2017-10-27 14:37 | ASMTCMCOM ---
CM Note CM Note Notes: Pt presented to the Emergency Department via EMS s/p a near syncopal event and possible overdose. History includes bipolar disorder and PTSD. Per notes, pt is homeless. Asked to see pt by CORY Orozco regarding a request for medical records. Met with pt to discuss needs. Pt requesting a letter or statement of proof that he was seen in this Emergency Department from 10/26/17 - 10/27/17. Pt requesting letter include his name, diagnosis, time of treatment, admit date/time, discharge date/time. Letter provided per pt's request. Per pt, letter is needed for his disability insurance. Pt to transfer to [facility] in [place] for further mental health evaluation and treatment. CM available for any further issues or concerns. Date Signed: 10/27/2017 02:36 PM Electronically Signed By:Libertad Liu RN
[2017-10-27 14:54] VITALS: BP 127/81
[2017-10-28] MEDS ORDERED: FLUoxetine 10 MG CAP PO ONE (10:15)
== END 2017-10-27 14:54 ==
LOC: EDUNIT#
DX: T50.902A Poisoning by unspecified drugs, medicaments and biological substances, intentional self-harm, initial encounter (principal); F17.200 Nicotine dependence, unspecified, uncomplicated
CPT/HCPCS: 80305; 96374; G0480; J2060

== ENCOUNTER 2017-12-29 08:15 | Emergency (ER) | payer MEDICAID ==
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
[2017-12-29 10:26] VITALS: BP 124/66
--- NOTE | 2017-12-29 11:44 | ASMTCMCOM ---
CM Note CM Note Notes: Patient presents to the ER today with c/o bilateral knee pain and inquiring into whether we can provide home with a cane. Charts reviewed from patient's prior ER visits in August and October of this year, Patient is very pleasant and tells me that he thinks it would be helpful to have a cane or "even some crutches" as his knees have been "giving out" on him recently. He would like a couple of luanne wraps or knee braces as well. Patient has entered the jail system through the coordinated entry program and is currently staying at the [facility]. He appears to be comfortable with this situation Crutches provided to patient from our donation supply (CM). I was unable to find a cane. Prescription for a cane provided to patient and patient is comfortable following up with this. Patient has an appointment scheduled with Dr. Mejía at [facility] on Sunday and will follow up at the [facility] as well. I have LM on the backline at [facility] re pts. ER visit Patient asked for and was provided a local bus pass for him to return to the jail Date Signed: 12/29/2017 11:43 AM Electronically Signed By:Brandi Barroso RN
== END 2017-12-29 10:26 | disposition home or self-care (01) ==
LOC: EDUNIT#
DX: S80.01XA Contusion of right knee, initial encounter (principal); S80.02XA Contusion of left knee, initial encounter; F17.200 Nicotine dependence, unspecified, uncomplicated; W01.198A Fall on same level from slipping, tripping and stumbling with subsequent striking against other object, initial encounter; Y99.8 Other external cause status; Y93.01 Activity, walking, marching and hiking

== ENCOUNTER 2018-02-26 04:22 | Emergency (ER) | payer MEDICAID ==
[2018-02-26] MEDS ORDERED: PROMETHAZINE HCL 25 MG TAB ONE (05:31)
[2018-02-26 18:29] LABS: PLATELET COUNT 430 10^3/uL (150-400)
== END 2018-02-26 06:50 | disposition home or self-care (01) ==
DX: R11.2 Nausea with vomiting, unspecified (principal)
CPT/HCPCS: 84484-PO

== ENCOUNTER 2018-02-28 06:39 | Emergency (ER) | payer MEDICAID ==
[2018-02-28 06:50] VITALS: BP 166/86
[2018-02-28] MEDS ORDERED: ACETAMINOPHEN 325 MG TAB PO ONE (07:22)
--- NOTE | 2018-02-28 07:22 | EDPHY ---
H & P Time Seen by Provider: 02/28/18 07:18 HPI/ROS: CHIEF COMPLAINT: Can I get an MRI HISTORY OF PRESENT ILLNESS: Patient was seen in our emergency department on with an ankle injury diagnosed with a sprain with a negative x-ray. He tells me it is still hurting on both malleoli but he did not sustain any other injury. He has been walking, using hiking shoes. REVIEW OF SYSTEMS: Denies leg or knee symptoms PAST MEDICAL HISTORY: Includes hypertension, schizoaffective disorder per discharge summary dated 09/04/2017 by Wade Layne, coronary disease with previous stenting General Appearance: Alert and conversant, cooperative. Mild tenderness on both malleoli but stable joint. No skin redness or laceration or discoloration. Normal motor sensory and vascular. No foot tenderness. No Achilles tenderness. Emergency Department course/MDM: Tylenol, stirrup splint, orthopedic referral. Ambulatory with a brace, gait is not antalgic. Smoking Status: Current every day smoker Constitutional: Initial Vital Signs Temperature (C) 36.6 C 02/28/18 06:47 Heart Rate 82 02/28/18 06:47 Respiratory Rate 18 02/28/18 06:47 Blood Pressure 166/86 H 02/28/18 06:47 O2 Sat (%) 93 02/28/18 06:47 O2 Delivery Mode Room Air Allergies/Adverse Reactions: haloperidol [From Haldol] Allergy (Verified 02/26/18 20:51) Home Medications: Medication Instructions Recorded FLUoxetine [Prozac 20 MG (*)] 20 mg PO DAILY #30 cap 09/04/17 Prazosin HCl [Minipress 1mg (*)] 1 mg PO HS #30 cap 09/04/17 ARIPiprazole [Abilify] 20 mg PO DAILY 12/29/17 Albuterol [Proventil Inhaler HFA 1 - 2 inh IH Q4 PRN 02/24/18 (*)] Aspirin [Aspirin 81mg (*)] 81 mg PO DAILY 02/24/18 Atorvastatin Calcium [Lipitor 20 20 mg PO DAILY 02/24/18 mg (*)] Budesonide/Formoterol 160/4.5 1 puffs IH DAILY 02/24/18 [Symbicort 160-4.5 Mcg Inh (*)] Lisinopril [Zestril 20 mg (*)] 20 mg PO DAILY 02/24/18 Naproxen [Naprosyn] 500 mg PO BIDMEAL #10 tablet 02/24/18 amLODIPine BESYLATE [Norvasc 2.5 2.5 mg PO DAILY 02/24/18 mg (*)] MDM/Departure - MDM Medications Given: Discontinued Medications Acetaminophen (Tylenol) 650 mg PO EDNOW ONE Stop: 02/28/18 07:23 Last Admin: 02/28/18 07:37 Dose: 650 mg - Depart Disposition: Home, Routine, Self-Care Clinical Impression: Left ankle injury Qualifiers: Encounter type: subsequent encounter Qualified Code(s): S99.912D - Unspecified injury of left ankle, subsequent encounter Condition: Good Instructions: Ankle Stirrup Splint (ED) Additional Instructions: Activity as tolerated. Follow up with Orthopedics if you're not getting better in a week. Referrals: Guicho James MD [Medical Doctor] - 5-7 days, if not improved
== END 2018-02-28 07:38 | disposition home or self-care (01) ==
DX: S99.912D Unspecified injury of left ankle, subsequent encounter (principal)
CPT/HCPCS: L4350

== ENCOUNTER 2018-03-01 15:46 | Emergency (ER) | payer MEDICAID ==
--- NOTE | 2018-03-01 16:21 | EDPHY ---
H & P Time Seen by Provider: 03/01/18 15:58 HPI/ROS: HPI Blood in stool in urine. 42-year-old male on foot. This patient reports that yesterday morning he noticed that he had blood in his urine as well as blood in his stool. He describes this as bright red blood. He reports that for the last 2 days he has had some vague abdominal cramping. He reports having some nausea and an episode of vomiting 2 days ago. He denies any significant abdominal pain at this time. He has had no vomiting or diarrhea. He reports having some constipation associated with his abdominal cramping 2 days ago. Of note, the patient was just seen in our emergency department yesterday with complaint of ongoing ankle pain after being diagnosed with an ankle injury on the of this month. He was requesting an MRI at that time. I have reviewed the emergency department physician's note. There is no mention of the patient's current complaints. ROS: Constitutional: No fever, no chills. No weakness. No lightheadedness. Respiratory: No cough. No shortness of breath. Cardiac: No chest pain, no palpitations. Gastrointestinal: As above, no diarrhea. Genitourinary: As above. No dysuria or increased frequency with urination. Musculoskeletal: No back pain. No neck pain. He denies extremity pain currently. Skin: No rashes. Neurological: No headache. No focal weakness or altered sensation. Past medical history: Hypertension, schizoaffective disorder, coronary artery disease with stents placed. Primary care is through [facility]. Social history: Smoker. Denies alcohol and drugs. Here by himself. Physical Exam: General Appearance: Alert, no distress. Obese habitus, very large man This patient is responding to questions appropriately and in full sentences. This patient appears well-hydrated and well-nourished. Eyes: Pupils equal and round no pallor or injection. No lid edema, erythema or injection. Respiratory: There are no retractions, lungs are clear to auscultation with good air movement bilaterally. Cardiovascular: Regular rate and rhythm. No murmur. Gastrointestinal: Obese habitus with large pannus. Abdomen is soft and nontender, no masses, bowel sounds present. No focal tenderness at McBurney's point. No [place] sign. Rectal exam: Normal tone. No gross blood. No melenic stool. Normal colored brown stool. Neurological: Motor sensory function is grossly intact. Cranial nerves are normal. Gait is normal. Skin: Warm and dry, no rashes. Musculoskeletal: Neck is supple and nontender. Extremities are symmetrical. All joints range without pain or impingement. Psychiatric: No agitation. No depression. Database: EKG: Imaging: Procedures: Emergency department course: Triage vital signs reviewed. He is moderately hypertensive. Vital signs otherwise normal. Urinalysis and stool Hemoccult testing to be obtained. 4:40 p.m., patient re-evaluated. He is sleeping at this time. Hemoccult stool testing is weakly positive. His urinalysis is unremarkable. No evidence of blood or infection. I feel that significant gastrointestinal bleeding is unlikely in this patient at this time. I will obtain a CBC. If this is unremarkable the patient will be discharged with follow up with his primary care physician. Hematocrit today is 38.4. Hematocrit on February 24 was 39.2. Patient is not having any gross blood per rectum. Repeat abdominal exam is soft, nontender nondistended. I did discuss observation admission with him but he does not want to be admitted at this time. Plan will be to have him follow up with his primary care physician on Sunday for a repeat H&H or return here to the emergency department if he cannot see his primary care physician. He was given instructions to return to the emergency department for any gross bleeding per rectum any black or tarry looking stool or other serious concerns. He lives here in town and can easily return to the emergency department if needed. He understands his follow-up. All of his questions were answered. The patient was discharged in good condition. Differential Diagnosis: The differential diagnosis on this patient includes but is not limited to constipation. Cystitis, urinary tract infection, malignancy, lower gastrointestinal bleeding, upper gastrointestinal bleeding unlikely. This represents a partial list of diagnoses considered. These considerations are based on history, physical exam, past history, reassessment and diagnostic testing. Smoking Status: Current every day smoker Constitutional: Initial Vital Signs Temperature (C) 36.8 C 03/01/18 15:49 Heart Rate 89 03/01/18 15:49 Respiratory Rate 18 03/01/18 15:49 Blood Pressure 165/95 H 03/01/18 15:49 O2 Sat (%) 95 03/01/18 15:49 O2 Delivery Mode Room Air Allergies/Adverse Reactions: haloperidol [From Haldol] Allergy (Verified 02/26/18 20:51) Home Medications: Medication Instructions Recorded FLUoxetine [Prozac 20 MG (*)] 20 mg PO DAILY #30 cap 09/04/17 Prazosin HCl [Minipress 1mg (*)] 1 mg PO HS #30 cap 09/04/17 ARIPiprazole [Abilify] 20 mg PO DAILY 12/29/17 Albuterol [Proventil Inhaler HFA 1 - 2 inh IH Q4 PRN 02/24/18 (*)] Aspirin [Aspirin 81mg (*)] 81 mg PO DAILY 02/24/18 Atorvastatin Calcium [Lipitor 20 20 mg PO DAILY 02/24/18 mg (*)] Budesonide/Formoterol 160/4.5 1 puffs IH DAILY 02/24/18 [Symbicort 160-4.5 Mcg Inh (*)] Lisinopril [Zestril 20 mg (*)] 20 mg PO DAILY 02/24/18 Naproxen [Naprosyn] 500 mg PO BIDMEAL #10 tablet 02/24/18 amLODIPine BESYLATE [Norvasc 2.5 2.5 mg PO DAILY 02/24/18 mg (*)] Medical Decision Making - Data Points Laboratory Results: Laboratory Results 03/01/18 17:15 Departure - Departure Disposition: Home, Routine, Self-Care Clinical Impression: Rectal bleeding Condition: Good Instructions: Rectal Bleeding (ED) Additional Instructions: Read and follow provided instructions. Follow-up with your primary care physician at [facility] as discussed on Sunday to be re-evaluated and for repeat hemoglobin and hematocrit and to check your blood levels as discussed. If you are unable to see your primary care physician return to the emergency department to have this test done. Return to the emergency department immediately for bleeding from your rectum, bloody stool, black or tarry stool, abdominal pain or other serious concerns. Referrals: [facility],. [Clinic] - As per Instructions
[2018-03-01 18:05] VITALS: BP 160/85
== END 2018-03-01 18:04 | disposition home or self-care (01) ==
DX: K62.5 Hemorrhage of anus and rectum (principal); I10 Essential (primary) hypertension; I25.10 Atherosclerotic heart disease of native coronary artery without angina pectoris; F17.200 Nicotine dependence, unspecified, uncomplicated; F25.9 Schizoaffective disorder, unspecified

== ENCOUNTER 2018-03-02 23:26 | Emergency (ER) | payer MEDICAID ==
[2018-03-02 23:31] VITALS: BP 167/98
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
== END 2018-03-03 00:08 | disposition home or self-care (01) ==
DX: F32.9 Major depressive disorder, single episode, unspecified (principal); F43.10 Post-traumatic stress disorder, unspecified; F17.200 Nicotine dependence, unspecified, uncomplicated; Z59.0 Homelessness

== ENCOUNTER 2018-03-11 09:00 | Emergency (ER) | payer MEDICAID ==
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
[2018-03-11 10:54] LABS: PLATELET COUNT 341 10^3/uL (150-400)
--- NOTE | 2018-03-11 11:53 | ASMTLCPROG ---
Notes Note: Notes: [facility] contacted [facility] and learned that the patient is an open client. Lisa, [facility] worker, asked "given the patient is voluntary, assuming he medically clears, will you cab him to the walk-in clinic." The patient agreed that he could be safe and was willing. In consultation with [facility] ED physician, Nargis Phillips NP and [facility] on-call psychiatrist, Wade Layne MD, both concurred that this was an appropriate disposition. The patient was transferred to [facility]. Date Signed: 03/11/2018 11:50 AM Electronically Signed By:Loly Cross
[2018-03-11 12:24] VITALS: BP 132/90
== END 2018-03-11 12:20 ==
DX: R45.851 Suicidal ideations (principal); F20.0 Paranoid schizophrenia; I10 Essential (primary) hypertension; Z59.0 Homelessness
CPT/HCPCS: 80305; G0480

== ENCOUNTER 2018-04-04 16:15 | Observation (INO) | payer MEDICAID ==
[2018-04-04] MEDS ORDERED: VERAPAMIL 5 MG/2 ML VIAL ONE (16:29)
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
[2018-04-04 16:42] LABS: PLATELET COUNT 380 10^3/uL (150-400)
[2018-04-04] MEDS ORDERED: HEPARIN 10,000 UNIT/10 ML MDV (1,000 UNIT/ML) ONE ×2 (16:42→17:47)
[2018-04-04 16:58] LABS: INR 0.93 (0.83-1.16); PROTIME(PATIENT) 12.7 SEC (12.0-15.0)
[2018-04-04] MEDS ORDERED: MIDAZOLAM 2 MG/2 ML VIAL ONE ×3 (16:59→18:18)
[2018-04-04] MEDS ORDERED: fentaNYL 100 MCG/2 ML INJ ONE ×2 (16:59→18:17)
[2018-04-04] MEDS ORDERED: IOPAMIDOL (ISOVUE-370) 150 ML BTL IV ONE ×2 (17:27→18:18)
[2018-04-04] MEDS ORDERED: CLOPIDOGREL BISULFATE 75 MG TAB ONE (17:51)
[2018-04-04] MEDS ORDERED: LORazepam 2 MG/ML INJ IVP PRN (18:05)
[2018-04-04] MEDS ORDERED: TEMAZEPAM 15 MG CAP PO PRN (18:05)
[2018-04-04] MEDS ORDERED: HYDROCODONE/APAP 5/325 TAB PO PRN (18:05)
[2018-04-04] MEDS ORDERED: ATROPINE SULFATE 1 MG/10 ML SYR IVP PRN (18:05)
[2018-04-04] MEDS ORDERED: NITROGLYCERIN 0.4 MG BTL SL PRN (18:05)
[2018-04-04] MEDS ORDERED: CLOPIDOGREL BISULFATE 75 MG TAB PO ONE (18:05)
[2018-04-04] MEDS ORDERED: OXYCODONE/APAP 5/325 TAB PO PRN (18:05)
[2018-04-04] MEDS ORDERED: ONDANSETRON 4 MG/2 ML VIAL IVP PRN (18:05)
[2018-04-04] MEDS ORDERED: NS 1,000 ML IV SCH (18:15)
[2018-04-04] MEDS ORDERED: LIDOCAINE 1% 300 MG/30 ML SDV ONE (18:17)
--- NOTE | 2018-04-04 19:14 | GHP ---
DATE OF ADMISSION: 04/04/2018 HISTORY OF PRESENT ILLNESS: This patient is a 42-year-old man with a past medical history significan t for coronary artery disease and prior heart attack, who presented to the emergency room with compla ints of chest pain. Of note is that he was seen during the hospitalization, 03/04, for similar compl aints and was ultimately discharged from the hospital after an echocardiogram was obtained. He had a n ischemic evaluation with stress testing in August of this year at this hospital which was found t o be negative. The patient was and admitted in February and ultimately discharged on 02/24/2018, with a presumptive diagnosis of possible pericarditis, and placed on naproxen. The patient has done relat ively well for the last month, but began to experience relatively severe chest pain, pressure and tig htness, 8/10 in severity, while looking at his computer, looking for work. EMS was called and the pa canelo was taken to the hospital for further evaluation. On the way, an EKG was obtained in the ambul ance and a cardiac alert was called. Because I was relationship assoc for the evening, I was [facility] and for hospital admission. At the time of my evaluation, the patient was mil dly diaphoretic and seemed anxious, and admitted to 8/10 chest discomfort with slight improvement wit h sublingual nitroglycerin. The EKG from the ambulance and here in the hospital when repeated, revea led J-point elevation in V1, V2, V3 without definite reciprocal change. There were ST-T abnormalitie s that could be consistent with myocardial ischemia, and for that reason, I felt it would be reasonab le to take the patient to the dental laboratory manager for further evaluation. MEDICATIONS: Include Minipress/prazosin 1 mg p.o. daily, Prozac 20 mg daily, Abilify 20 mg p.o. khai y, albuterol inhaler 1-2 puffs q.4 hours as needed, Symbicort 1 puff inhaled daily, aspirin 81 mg fely ly, atorvastatin 20 mg daily, lisinopril 20 mg daily, amlodipine 2.5 mg daily, and naproxen 500 mg p. o. b.i.d. x10 tablets and then discontinue. ALLERGIES: He is known to have allergy or an adverse reaction to haloperidol. PSYCHIATRIC HISTORY: Pertinent for suicidal ideation with a hospital admission earlier this year for that. There apparently was also a suicide attempt at age 22, although the details on that are not c urrently available to me at the present time. PAST MEDICAL HISTORY: Significant for hypertension and dyslipidemia. He also states that he has had a prior heart attack with 2 stents implanted at [facility] in [place], [place]. He has had no other cardiac events or history. He does have intermittent chest discomfort and has had that thr oughout much of the year, this year. He did undergo a recent chest CTA on 02/24, which was negative for pulmonary embolus as part of a workup, and for pulmonary embolus which was negative. He has also had musculoskeletal problems and presumptive pericarditis at the time of his admission in February. SOCIAL HISTORY: Pertinent for the fact that he is currently homeless and is not working, but is tryi ng to find work. He does not smoke, abuse alcohol or illicit drugs. He does not have a premature fa laisha history of cardiovascular illness. FAMILY HISTORY: Negative for premature history of cardiovascular illness. REVIEW OF SYSTEMS: A 10-point review of systems was negative except for chest pain, shortness of zachary ath,and some nausea,all of which have occurred today. PHYSICAL EXAMINATION: VITAL SIGNS: His blood pressure was 128/83, pulse 76 and regular, respiration s 16 unlabored, oxygen saturation 93% on room air, temperature 36.4. NECK: Reveals no JVD or carotid bruit. His neck is somewhat large, so this makes for a difficult examination. HEENT: His sclerae are anicteric. Pupils are equal, round, and reactive to light. His mouth reveals moist mucous membr anes. He does have a Mallampati 4, so a higher risk airway. CHEST: Pertinent for an S1, S2, withou t S3, S4. I do not appreciate a rub or gallop sound. LUNGS: Clear to auscultation anteriorly and a re with decreased air movement and decreased breath sounds secondary to the patient's body habitus. ABDOMEN: Obese, with positive bowel sounds. It is nondistended, nontender. EXTREMITIES: Reveal ch ronic 3 to 4+ edema, with changes of chronic venous stasis, suggestive of possible chronically elevat ed right heart pressures as might be seen with sleep apnea. LABORATORY DATA: Reveals a white count of 6.62, H and H of 14.8 and 44.7, with a platelet count of 3 80. The PT/INR is 12.7 and 0.93, with APTT of 30.8. Chemistry: Sodium 136, potassium 4.4. BUN and creatinine of 13 and 0.8, with estimated GFR greater than 60. Glucose was measured as a nonfasting sample as 94. Calcium 9.4. Phosphorus 3.9. Total bilirubin 0.5. LDH is 389. CK-MB fraction is 2. 48, with a zsdim-gb-ojze troponin of 0.03. Albumin is measured at 4.1. Prior evaluations for drugs of abuse are negative for all drugs except for a non-negative test for THC or marijuana. The EKG reveals sinus rhythm, again with J-point elevation in V1, V2 and V3, with an abnormal ST-T wa ve contour. It is difficult to determine if this is secondary to early repolarization. This is not a classic ST-elevation myocardial infarction in progress. There are no significant reciprocal change s. There are Q-waves in lead III with T-wave inversions in III and AVF. IMPRESSION/PLAN: Unstable angina pectoris in a patient with multiple evaluations this year for chest pain and a purported history of prior myocardial infarction and stent implantation. I think it woul d be in the patient's best interest to proceed immediately to the cardiac catheterization laboratory for angiography, and if he is found to have a high-grade or obstructive lesion, either with restenose s of previously placed stents or de Jaskaran lesions that are limiting blood flow to his myocardium, then he should be considered for an intervention given his active 8/10 chest discomfort. I have discusse d the risks, benefits, and alternatives of this course of action with the patient, who understands an d is willing to proceed as planned. Copy requested to: PC[facility]ell /[id number]/MODL
--- NOTE | 2018-04-04 19:33 | CPEKG ---
Test Reason : OPEN Blood Pressure : / mmHG Vent. Rate : 105 BPM Atrial Rate : 106 BPM P-R Int : 171 ms QRS Dur : 091 ms QT Int : 334 ms P-R-T Axes : 063 073 -18 degrees QTc Int : 442 ms Sinus tachycardia Borderline T abnormalities, inferior leads ST elev, probable normal early repol pattern Confirmed by Linda Zeng ([id number]) on 04/04/2018 7:33:36 PM Referred By: Confirmed By:Linda Zeng
--- NOTE | 2018-04-04 21:45 | CPIP ---
DATE OF PROCEDURE: 04/04/2018 PROCEDURE PERFORMED: 1. Selective coronary angiography. 2. Left heart catheterization. 3. Left ventriculogram. 4. PTCA and stent placement of the proximal and ostial LAD with the use of a 4-0 x 16 Synergy drug-e luting stent. 5. Right radial approach; there was a TR band arteriotomy repair. COMPLICATIONS: None. MOISTURE TESTER: Colten Vásquez M.D. INDICATIONS/APPROPRIATE USE CRITERIA: The patient presented with unstable angina in the hospital wit h 8/10 crushing chest pain. Has a purported history of prior stent implantation at the time of his a dmission. Under care of physicians in [place], [place]. He also has J-point elevation, ST-elevat ion, and relatively peaked T-waves in the anterolateral precordium. This pattern, of course, could b e related to normal artery repolarization in an gentleman, but may, of course, repre sent a threatened myocardial injury. The patient does have CCS class 4 and relatively intense angina in spite of multiple doses of sublingual nitroglycerin on the patient's way to the hospital, as well as intravenous morphine. PROCEDURE IN DETAIL: After informed consent was obtained and n.p.o. status was confirmed, the region of the right wrist was cleaned, prepped, and draped in sterile fashion. Approximately 5 cc of 1% li docaine was utilized for local anesthesia. A 6-Martiniquais sheath was placed in the right radial artery w ith single entry puncture of the vessel. The patient then underwent the previously mentioned diagnos tic procedure with use of JL4 and R4 curved coronary catheters, JL3.5 and R4 coronary catheters, as w ell as a 5-Martiniquais pigtail catheter. Standard wire exchange technique was utilized for all catheter e xchanges. The right coronary artery is quite large and approximately 6 mm in size. It is dominant, giving rise to the posterior descending and posterolateral ventricular branch. No flow-limiting obstruction is identified in this vessel. I do not appreciate a previously placed stent within the right coronary s ystem. The left main coronary lumen is approximately 8 mm in size and trifurcates into an LAD, ramus, and ci rcumflex system. The ramus and circumflex are free of flow-limiting disease and both exhibit BEAU-3 flow. The proximal LAD in the CRISSY caudal projection demonstrates relatively significant obstruction angiographically with a hazy appearance, which could be related to thrombus. Because of these findin gs, we elected to proceed with intravascular ultrasound. The patient received intravenous heparin at appropriate doses to achieve an ACT between 250 and 317 seconds. A 6-Martiniquais 3.5 EBU catheter was us ed for guide catheter support. A 0.014 Intuition wire was advanced across the lesion in question, an d the patient underwent successful intravascular ultrasound of the LAD to the level of the mid LAD. There was no evidence of a previously placed stent on intravascular ultrasound imaging, nor was there evidence of that on angiography. Intravascular ultrasound did demonstrate an obstructive eccentric lesion in the proximal and ostial LAD with a plaque area of stenosis of 65%. Given the angiographic findings, the patient's clinical presentation, and recurrent chest pain dating back to August at [facility], we elected to proceed with stent implantation to improve the blood flow to the anterior wall of his heart. A 4-0 x 16 Synergy drug-eluting stent was then deployed under direct fluoroscopic and angiographic gu idance in the ostial LAD, and deployed at a maximum pressure of 16 and then 18 atmospheres with excel lent angiographic results and 0% residual stenosis status post PTCA and stent placement. Angiographi sue, the lesion appeared to be 60-70 percent obstructed and again with plaque area stenosis evaluat ion with IVUS, it was 65%. The balloon was removed and post stent implantation angiography was docum ented at 0% residual stenosis. Because of the proximal and ostial location of the stent, we did proc eed with post stent intravascular ultrasound. This documented excellent placement of the stent just proximal to the diagonal and septal takeoff with excellent stent geometry and apposition to the vesse l wall. We did place the stent in the proximal LAD and approximately 2 mm short of its takeoff from the left main ostium. There was no evidence of flow-limiting obstruction and 0% residual stenosis st atus post PTCA and stent placement with IVUS-guided stent implantation. PLAN: The patient returned to the PACU in stable condition; returned to the PCU overnight; should be able to be discharged tomorrow. He will need to be on aspirin and Plavix as dual antiplatelet thera py for at least 1 year following stent implantation. I have discussed the fact that any decision to stop the medication in combination should include our office at [facility]. The number there is . The patient does need to be evaluated for sleep apnea, given his personal history of sn oring and the fact that he appears to have chronically elevated right heart pressures and possible ch ronic venous stasis of the right and left lower extremities. I think it would be prudent to obtain t jasmina records of his prior hospitalizations from [place], [place], to see if the patient has had prio r stents. I was unable to identify those because of the patient's very large body habitus on fluoros copy and would like to have the records of any prior angiography, since the patient now lives here in [place]. Copy requested to: Marychuy SorensenPRIMARY CARE PHYS TARUN Lynch /[id number]/MODL
[2018-04-04] MEDS ORDERED: LITHIUM CARBONATE 300 MG TAB PO SCH (22:30)
[2018-04-04] MEDS ORDERED: traZODone 100 MG TAB PO PRN (22:30)
[2018-04-04] MEDS ORDERED: PRAZOSIN HCL 1 MG CAP PO SCH (22:30)
[2018-04-04] MEDS: CYCLOBENZAPRINE 10 MG TAB PO SCH (23:03)
[2018-04-04] MEDS: GABAPENTIN 300 MG CAP PO SCH (23:03)
[2018-04-05 07:38] VITALS: BP 154/89
[2018-04-05] MEDS ORDERED: hydrOXYzine HCL 25 MG TAB PO PRN (08:13)
[2018-04-05] MEDS ORDERED: ALBUTEROL 60 PUFFS/8 GM MDI IH PRN ×2 (08:13→08:30)
[2018-04-05 08:35] LABS: PLATELET COUNT 342 10^3/uL (150-400)
[2018-04-05] MEDS ORDERED: CLOPIDOGREL BISULFATE 75 MG TAB PO SCH (09:00)
[2018-04-05] MEDS ORDERED: ATORVASTATIN CALCIUM 20 MG TAB PO SCH (09:00)
[2018-04-05] MEDS ORDERED: FLUoxetine 20 MG CAP PO SCH (09:00)
[2018-04-05] MEDS ORDERED: CHLORTHALIDONE 25 MG TAB PO SCH (09:00)
[2018-04-05] MEDS ORDERED: ASPIRIN EC 325 MG TAB PO SCH (09:00)
[2018-04-05] MEDS ORDERED: BUDESONIDE/FORMOTEROL 160/4.5 60 PUFFS/MDI IH SCH (09:00)
[2018-04-05] MEDS ORDERED: LISINOPRIL 10 MG TAB PO SCH (09:00)
[2018-04-05] MEDS ORDERED: ARIPiprazole 10 MG TAB PO SCH (09:00)
[2018-04-05] MEDS: GABAPENTIN 300 MG CAP PO SCH (09:54)
[2018-04-05] MEDS: CYCLOBENZAPRINE 10 MG TAB PO SCH (09:54)
[2018-04-05] MEDS ORDERED: PNEUMOCOCCAL 0.5ML VACCINE VIAL IM ONE (09:57)
--- NOTE | 2018-04-05 10:06 | ASMTDCNOTE ---
Case Management Discharge Discharge Order Complete? Answers: Yes Followup Appointment 03/13/2018 12:00 AM Patient to Obtain Answers: Independently Medications Transportation Arranged Answers: Bus Tokens Discharge Comments Notes: Patient discharged to [facility] where he has a reserved bed. [facility] meds were [facility]. He will make an appt w his PCP there. He has a f.u. appt w [facility] 04/12. Date Signed: 04/05/2018 10:05 AM Electronically Signed By:Saira Thomas RN
--- NOTE | 2018-04-05 10:08 | ASMTLACE ---
ROSA M Length of stay for Answers: 2 days current admission Acuity / Level of Answers: No Care: Did the patient have an inpatient admission? Comorbidities - select Answers: Coronary Artery Disease all that apply Previous myocardial infarction # of Emergency department Answers: 12+ visits in the last 6 months Social determinants Answers: Homelessness (street, [facility]) Mental health diagnosis (anxiety, depression, pers onality disorders, etc.) Score: 17 Date Signed: 04/05/2018 10:07 AM Electronically Signed By:Saira Thomas RN
--- NOTE | 2018-04-05 13:12 | GDS ---
DISCHARGE DIAGNOSES: 1. Chest pain suggestive of a [place] [employer] 4 angina. 2. Percutaneous transluminal coronary angioplasty and stenting of the proximal and ostial left anter ior descending in this admission. 3. History of coronary artery disease per patient report with myocardial infarction and stent implan tation in [facility] in [place], [place]. 4. Morbid obesity with body mass index 53. 5. Hypertension. 6. Dyslipidemia. 7. Schizophrenia. 8. Previous admissions for suicidal ideation. 9. Ongoing tobacco abuse. 10. Chronic chest pain. PROCEDURES: 04/04/2018: Left heart catheterization, which showed a large right coronary artery, whi ch is the dominant vessel. There is no significant disease in the right coronary artery system. The left main is large and trifurcates into the left anterior descending, ramus, and circumflex. The ra mus and circumflex are free of any flow-limiting disease. The left anterior descending demonstrates relatively significant obstruction for which intravascular ultrasound was performed. This showed 65% lesion treated with percutaneous transluminal coronary angioplasty and stenting. BRIEF HISTORY: Please see dictated H and P by Dr. Vásquez for complete details. In brief, the patien jayce is a 42-year-old male with past medical history significant for CAD with previous NH and reported s tents at age 40, dyslipidemia, hypertension, obesity, ongoing tobacco abuse, who was brought in as a cardiac alert. EKG showed likely J-point elevations without definite reciprocal changes. He was carmelita en to the cardiac catheterization laboratory and treated with PTCA and stenting. On day of discharge , patient reports chest pains are currently milder. DISCHARGE PHYSICAL EXAM: VITAL SIGNS: On day of discharge, blood pressure 154/89, heart rate 91, re spirations 16, O2 saturation 99% on room air, temp of 97.7 degrees Fahrenheit. GENERAL: He is a plea georgina male in no apparent distress. HEENT: Normocephalic, atraumatic. Eyes are without scleral icte sam. HEART: Regular rate and rhythm. LUNGS: Clear. EXTREMITIES: Right wrist site without ecchym osis and radial pulses intact. LABORATORY DATA: CBC with WBC 5.19, hemoglobin 14.8, hematocrit 45.5, platelet count 342. BMP was s odium 138, potassium 4.3, chloride 102, CO2 26, BUN 10, creatinine 0.7, glucose of 95. RESULTS PENDING: None. DIET: Cardiac diet recommended. ACTIVITY: Wrist precautions were reviewed. He was also advised on cardiac rehab. DISCHARGE MEDICATIONS: Please see med reconciliation. The only addition will be Plavix 75 mg p.o. d aily. He is to continue his albuterol, amlodipine, Abilify, aspirin, atorvastatin, Neurontin, Flexer il, chlorthalidone, hydroxyzine, trazodone, lisinopril, Prazosin, Prozac, Symbicort. DISCHARGE INSTRUCTIONS: 1. Wrist precautions as reviewed and medication compliance as discussed. 2. Follow up with Dr. Vargas as scheduled in 1 week's time. /[id number]/MODL
--- NOTE | 2018-04-06 11:15 | CPEKG ---
Test Reason : OPEN Blood Pressure : / mmHG Vent. Rate : 087 BPM Atrial Rate : 087 BPM P-R Int : 183 ms QRS Dur : 100 ms QT Int : 381 ms P-R-T Axes : 050 076 -17 degrees QTc Int : 459 ms Sinus rhythm Borderline T abnormalities, inferior leads Confirmed by Aysha Rosa ([id number]) on 04/06/2018 11:14:41 AM Referred By: Confirmed By:Aysha Rosa
--- NOTE | 2018-04-06 11:23 | CPEKG ---
Test Reason : OPEN Blood Pressure : / mmHG Vent. Rate : 092 BPM Atrial Rate : 092 BPM P-R Int : 189 ms QRS Dur : 088 ms QT Int : 349 ms P-R-T Axes : 048 076 -18 degrees QTc Int : 432 ms Sinus rhythm Borderline T abnormalities, inferior leads Confirmed by Aysha Rosa ([id number]) on 04/06/2018 11:22:41 AM Referred By: Confirmed By:Aysha Rosa
== END 2018-04-05 13:28 | disposition home or self-care (01) ==
LOC: EDUNIT# → F2W 18:42
PROVIDERS: ADMIT Internal Medicine Cardiovascular Disease; ATTEND Internal Medicine Cardiovascular Disease
PROC: 027034Z Dilation of Coronary Artery, One Artery with Drug-eluting Intraluminal Device, Percutaneous Approach (ICD-10-PCS; principal; 2018-04-04 18:18)
PROC: 4A023N7 Measurement of Cardiac Sampling and Pressure, Left Heart, Percutaneous Approach (ICD-10-PCS; principal; 2018-04-04 18:18)
PROC: B2111ZZ Fluoroscopy of Multiple Coronary Arteries using Low Osmolar Contrast (ICD-10-PCS; principal; 2018-04-04 18:18)
PROC: B2151ZZ Fluoroscopy of Left Heart using Low Osmolar Contrast (ICD-10-PCS; principal; 2018-04-04 18:18)
PROC: B245ZZ3 Ultrasonography of Left Heart, Intravascular (ICD-10-PCS; principal; 2018-04-04 18:18)
DX: I25.119 Atherosclerotic heart disease of native coronary artery with unspecified angina pectoris (principal); I25.2 Old myocardial infarction; E66.01 Morbid (severe) obesity due to excess calories; Z68.43 Body mass index [BMI] 50.0-59.9, adult; I10 Essential (primary) hypertension; E78.5 Hyperlipidemia, unspecified; F20.9 Schizophrenia, unspecified; F17.210 Nicotine dependence, cigarettes, uncomplicated; Z91.5 Personal history of self-harm; Z23 Encounter for immunization; Z59.0 Homelessness; Z87.828 Personal history of other (healed) physical injury and trauma
CPT/HCPCS: 71045; 90471; 92928; 92978; 93005; 93458; 99285; C1753; C1769; C1887; G0378; 84484-PO; C1874; C9600; G0008; G0009; J1200; J1644; J2250; J3010; Q9967

== ENCOUNTER 2018-04-07 09:59 | Observation (INO) | payer MEDICAID ==
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
[2018-04-07] MEDS ORDERED: NS 500 ML IV ONE (11:01)
[2018-04-07] MEDS ORDERED: ASPIRIN 81 MG CHEWABLE TAB PO ONE (11:01)
--- NOTE | 2018-04-07 11:04 | CPEKG ---
Test Reason : OPEN Blood Pressure : / mmHG Vent. Rate : 107 BPM Atrial Rate : 106 BPM P-R Int : 168 ms QRS Dur : 093 ms QT Int : 334 ms P-R-T Axes : 065 075 -19 degrees QTc Int : 446 ms Sinus tachycardia Probable left atrial enlargement Nonspecific T abnormalities, inferior leads Confirmed by David Ellis ([id number]) on 04/07/2018 11:03:28 AM Referred By: Confirmed By:David Ellis
[2018-04-07 11:07] LABS: PLATELET COUNT 353 10^3/uL (150-400)
[2018-04-07] MEDS: NITROGLYCERIN 0.4 MG BTL SL PRN ×2 (11:13→14:19)
[2018-04-07] MEDS ORDERED: ONDANSETRON 4 MG/2 ML VIAL IVP PRN (13:36)
[2018-04-07] MEDS ORDERED: ACETAMINOPHEN 325 MG TAB PO PRN (13:36)
[2018-04-07] MEDS ORDERED: ONDANSETRON DISINTEGRATING 4 MG TAB PO PRN (13:36)
--- NOTE | 2018-04-07 14:43 | ASMTCMCOM ---
CM Note CM Note Notes: Pt presented to the ED through triage for chest pain. Pt admtd for continued chest pain, acute CHF and possibly PNA. Pt was admitted 04/04-04/05, had a left heart cath and LAD stent was placed. Pt has a history of an HI and CAD w/stents placed a couple of years ago, HTN, schizophrenia, obesity, and dyslipidemia. Pt has been staying at the [facility]. This CM called [facility] and notified them of pt being admitted and not staying there this evening. When discharged 04/05, pt was provided a follow-up appt w/Dr Molina on 04/12/18 at 10:30am. Pt is open with [facility] and [facility]. Pt may benefit from [facility] referral. Exact DC needs TBD but anticipate pt to DC to [facility] retirement bed w/follow-up appts. CM to follow. Date Signed: 04/07/2018 02:42 PM Electronically Signed By:Ela Patino RN
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
[2018-04-07] MEDS: NITROGLYCERIN 2% 1 GM PACKET TP SCH ×3 (14:55→23:30)
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
[2018-04-07] MEDS ORDERED: hydrOXYzine HCL 25 MG TAB PO PRN (15:04)
[2018-04-07] MEDS ORDERED: traZODone 100 MG TAB PO PRN (15:04)
[2018-04-07] MEDS ORDERED: ALBUTEROL 60 PUFFS/8 GM MDI IH PRN ×2 (15:04→15:30)
--- NOTE | 2018-04-07 15:36 | PDCARPN ---
Cardiology Progress Note Chief Complaint: Chest pains Assessment/Plan: Assessment: Patient is a 42 y/o male with history of HTN, morbid obesity (BMP is >50), tobacco use, and CAD s/p PCI to proximal LAD 99-27-18), who presents back to [facility] with complaints of chest discomfort. Discomfort is a pain, and according to the patient, reached an intensity of about 9/10 today. At the time of discharge, the patient stated that pains were not completed gone (2/10), but he thought that some of the discomfort was simply due to lying in bed in the hospital - "stiffness". Upon waking today, the patient reports that the pains were suddenly noted. No radiation into shoulder, neck, or jaw. Location is substernal and midline. ECG without appreciable dynamic changes noted (this was compared to pre- and post intervention ECGs from the recent admission). First troponin was grossly normal (this being drawn several hours after pains had been noted. Compliance with medical therapy - specifically both ASA and Plavix - has been uninterrupted since started. Given the symptoms noted, the patient was given SL NTG as well as nitro patch, and at present, the pains that were noted have subsided (not to absent, but are less than that which was noted) . Cath films were reviewed, and excellent results to the proximal LAD intervention were appreciated at the end of the case. Both the LCX and ramus ( versus a very high OM) were patent at the end of the procedure as well. Left ventricular systolic ejection fraction was normal (images were somewhat compromised by the patient's large size, but systolic function and wall motion were able to be assessed). Bedside echocardiography with very good images obtained (somewhat of a concern given the patient's body habitus) with normal systolic function, no gross valve pathology, normal wall motion, and no wall motion abnormalities appreciated. Patient spent last night in the [facility], and dinner was unremarkable. Remainder of the 12 point review of systems was unremarkable. Plan: (1) Would ensure the patent remains on both ASA and Plavix for minimum of one year (RIMA) (2) Continue therapy on CCB and ACEi as at present - would add low dose beta blockers given the accelerated heart rates that are noted (3) Continue Chlorthalidone for fluid management assistance (4) Statins should continue for HLP and the newly noted CAD with PCI history - would reassess cholesterol after about 5 weeks (5) Maintain outpatient medical therapies as prior to admission (6) Cardiac rehab should be started for supervised exercise program (7) Would cycle troponin over the next 8-12 hours - obtain ECG with the troponin draws (8) There is a risk in this patient for PE/DVT given weight and recent (albeit radial) angiography - likelihood is lower given ASA and Plavix therapy, and there is also a risk for the d-dimer to be elevated given the patient's obesity and HTN, but I feel that this should be assessed (9) We will continue to follow the patient over this hospital stay Subjective: Chest discomfort, currently improved while on NTG patch Reviewed/Discussed With: hospitalist Objective: Vital Signs (8 Hrs) Temp Pulse Resp BP Pulse Ox 04/07/18 14:29 36.6 C 97 18 131/66 H 97 04/07/18 13:46 96 18 105/73 92 Intake/Output (24 Hrs) 04/06/18 04/07/18 04/08/18 05:59 05:59 05:59 Intake Total 500 Balance 500 Intake: IV Infused (ml) 500 Other: Weight 173.726 kg Number of Voids 1 Result Diagrams: 04/07/18 10:10 04/07/18 10:10 Cardiac Labs: first troponin was normal EKG: normal sinus rhythm without dynamic ST/T wave changes noted Telemetry: Normal sinus rhythm Echocardiogram: Normal LVEF, no gross valve pathology. Normal wall motion - Physical Exam Constitutional: no apparent distress, obese, other (Patient did report that he is activity having pains, but appears comfortable) Eyes: PERRL, EOMI Ears, Nose, Mouth, Throat: moist mucous membranes Cardiovascular: regular rate and rhythm (distant heart sounds), no rubs, No systolic murmur Peripheral Pulses: 2+: dorsalis-pedis (R), dorsalis-pedis (L) Respiratory: clear to auscultate bilat, no crackles, no wheezes Gastrointestinal: normoactive bowel sounds (moderate to severe obesity) Skin: no rashes, no edema Musculoskeletal: no muscular tenderness Neurologic: AAOx3, CN II-XII grossly intact Psychiatric: cooperative, interactive, following commands ICD10 Worksheet Patient Problems: Problems Problem Status Onset Chest pain Acute Congestive heart failure Acute Angina at rest Acute
[2018-04-07] MEDS: CYCLOBENZAPRINE 10 MG TAB PO SCH ×2 (16:23→21:12)
[2018-04-07] MEDS: METOPROLOL TARTRATE 25 MG TAB PO SCH ×2 (16:23→21:13)
[2018-04-07] MEDS ORDERED: NITROGLYCERIN 2% 1 GM PACKET TP SCH (18:00)
[2018-04-07] MEDS ORDERED: PRAZOSIN HCL 1 MG CAP PO SCH (21:00)
[2018-04-07] MEDS ORDERED: LITHIUM CARBONATE 300 MG TAB PO SCH (21:00)
[2018-04-08] MEDS: NITROGLYCERIN 2% 1 GM PACKET TP SCH ×2 (06:30→11:56)
[2018-04-08] MEDS: CYCLOBENZAPRINE 10 MG TAB PO SCH ×2 (08:12→14:58)
[2018-04-08] MEDS: METOPROLOL TARTRATE 25 MG TAB PO SCH (08:14)
[2018-04-08] MEDS ORDERED: ENOXAPARIN 40 MG/0.4 ML SYR SC SCH (09:00)
[2018-04-08] MEDS ORDERED: BUDESONIDE/FORMOTEROL 160/4.5 60 PUFFS/MDI IH SCH (09:00)
[2018-04-08] MEDS ORDERED: FLUoxetine 20 MG CAP PO SCH (09:00)
[2018-04-08] MEDS ORDERED: ATORVASTATIN CALCIUM 20 MG TAB PO SCH (09:00)
[2018-04-08] MEDS ORDERED: CHLORTHALIDONE 25 MG TAB PO SCH (09:00)
[2018-04-08] MEDS ORDERED: LISINOPRIL 10 MG TAB PO SCH (09:00)
[2018-04-08] MEDS ORDERED: CLOPIDOGREL BISULFATE 75 MG TAB PO SCH (09:00)
[2018-04-08] MEDS ORDERED: ASPIRIN 81 MG CHEWABLE TAB PO SCH (09:00)
[2018-04-08] MEDS ORDERED: ARIPiprazole 10 MG TAB PO SCH (09:00)
--- NOTE | 2018-04-08 09:08 | CPEKG ---
Test Reason : OPEN Blood Pressure : / mmHG Vent. Rate : 098 BPM Atrial Rate : 099 BPM P-R Int : 171 ms QRS Dur : 096 ms QT Int : 356 ms P-R-T Axes : 072 083 -19 degrees QTc Int : 455 ms Sinus rhythm Probable left atrial enlargement Borderline T abnormalities, inferior leads No sig change compared with 04/07/2018 Confirmed by Aysha Rosa ([id number] on 04/08/2018 9:08:12 AM Referred By: Confirmed By:Aysha Rosa
[2018-04-08] MEDS ORDERED: ENOXAPARIN 60 MG/0.6 ML SYR SC SCH (10:00)
--- NOTE | 2018-04-08 14:34 | PDDCSUM ---
Discharge Summary Discharge Summary: DISCHARGE DIAGNOSES: * chest pain with neck and left arm pain, resolved * etiology of pain uncertain but suspected to be related to chronic reflux disease * history of coronary artery disease and stenting, ongoing chest pain episodes after recent stenting of a 65% stenosis * ongoing tobacco abuse * intermittent alcohol abuse CONSULTANTS: Dr. Keshav Valerio [facility] SUMMARY: This patient who has a history of myocardial infarction and stents placed had been here several days ago with ongoing episodes of rest chest pain. At that time he had a stent placed across 65% stenosis with excellent flow results. He comes in now with another episode of the same pain. This episode of pain has resolved spontaneously here. This is described as an ache in the left chest along with burning there and and discomfort in the right neck and left upper arm. Notably this set of symptoms is described as having a somewhat different location and a different sensation compared to his initial myocardial infarction pain when he was assessed in [place] and had his 1st stent placement. Here the patient has ruled out for myocardial infarction and does not have heart failure or hemodynamic instability or arrhythmia. His recent angiography films including pre and post stent images was reviewed by Dr. Valerio. Given the patient's story it is felt that his chest pain is not coming from his heart at this time. There is no evidence of aneurysm, PE, pneumonia, or other internal thoracic etiology. In addition the patient does state that he has ongoing chronic reflux where he gets a sour acid taste in his throat and the back of his mouth associated with a burning sensation in the substernal area. This is very common symptom for him. In the past he has found that Protonix did help this set of symptoms and is also noted that to made is and other foods can aggravate the symptoms. He is concerned that this may be contributing to the current episode of chest pain in the similar episodes he has been having recently. Notably he does still smoke some cigarettes though he is attempting to quit and has cut back a fair bit. In addition in the past he was as much as a case of beer a day alcohol drinker and now only drinks 3-4 beers 1 day a week. He does use caffeine however and does not particularly at this time modify his diet with any anti reflux measures in mind. At this point is felt that his symptoms are most likely due to reflux and possibly esophageal spasm. However it is explain to the patient that if he treats reflux very aggressively and his symptoms persist he may need to have assessment for other possible causes of pain episodes such as gallbladder, bowel , neck, or muscular spasm etc. The patient is in agreement at this time to follow on anti reflux diet, continue work on quitting cigarettes, alcohol and caffeine, and use Protonix initially for attempted treatments. Is recommended that he use Protonix for as much as 3 months and if he has a good response then attempt to switch to Zantac or Pepcid to see if they work as well for him. PENDING TEST RESULTS: None MEDICATION CHANGES: Addition of Protonix 40 mg twice daily FOLLOW-UP PLAN: With his primary care physician next week Greater than 35 minutes bedside and care coordination time today
[2018-04-08 15:03] VITALS: BP 107/75
--- NOTE | 2018-04-08 15:32 | ASMTDCNOTE ---
Case Management Discharge Discharge Order Complete? Answers: Yes Patient to Obtain Answers: Other Notes: [facility] Medications Transportation Arranged Answers: Bus Tokens Discharge Comments Notes: 04/08/2018 Case Management Note Pt has appointment with Dr. Merlos on Apr.12 for follow up. Made [facility] referral. Pt [facility] with [facility]. Reserved senior living bed. Provided bus pass. Date Signed: 04/08/2018 03:32 PM Electronically Signed By:Sharyn Raygoza RN
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
--- NOTE | 2018-04-08 18:27 | SOAPPROG ---
JULIETA Progress Note Assessment/Plan: 1. chest pain - patient has been evaluated on multiple occasions over the last year for symptoms of chest pain. The chest pain is described as an ache over the left upper chest extending into his arm. The pain is not associated with nausea, vomiting, or diaphoresis. The pain is not like his previous anginal pain from 2013. The pain is not associated with exertion. On 08/29/2017 patient underwent stress testing for his chest pain demonstrating no evidence of ischemia or infarction. On 04/04/2018 he underwent cardiac catheterization demonstrating a 65% stenosis in his left anterior descending coronary artery. He was treated with stenting of his left anterior descending coronary artery given ongoing symptoms of chest pain. The patient's chest pain improved but did not resolve with percutaneous coronary intervention. Patient re-presented on 04/07/2018 with recurrent chest pain. EKG demonstrated no acute ST or T changes. Troponins were flat with 1 mildly elevated troponin of 0.038. Echocardiogram in the setting of chest pain demonstrated no segmental wall motion abnormalities. The LAD lesion could cause exertional chest pain by would unlikely cause rest symptoms. Suspect the patient's chest pain may not be related to ischemia. Patient reports he was on Protonix previously for chest pain with good resolved. Continue medical management for coronary artery disease and add Protonix. 2. CAD - patient has a history of coronary artery disease and is status post percutaneous coronary intervention of his LAD in 2013. He is status post stenting of his LAD on 04/04/2018. He reports symptoms of chest pain, however, these are unlikely to represent ischemia as noted above. Will continue secondary prevention. Subjective: No further episodes of chest pain chest pain not like his previous angina No orthopnea or PND Taking medications. Objective: Vital Signs Temp Pulse Resp BP Pulse Ox 36.6 C 83 16 107/75 93 04/08/18 11:46 04/08/18 15:01 04/08/18 11:46 04/08/18 15:01 04/08/18 11:46 04/07/18 04/08/18 04/09/18 05:59 05:59 05:59 Intake Total 2900 Output Total 300 Balance 2600 Physical Exam - Physical Exam General Appearance: alert, no apparent distress Respiratory: lungs clear Cardiac/Chest: regular rate, rhythm Neuro/Psych: alert, oriented x 3 ICD10 Worksheet Patient Problems: Problems Problem Status Onset Angina at rest Acute Chest pain Acute Congestive heart failure Acute
[2018-04-09] MEDS ORDERED: PANTOPRAZOLE SODIUM 40 MG TAB PO SCH (09:00)
== END 2018-04-08 15:14 | disposition home or self-care (01) ==
LOC: INTOOBSV 12:46 → F2W 13:53
PROVIDERS: ADMIT Hospitalist; ATTEND Internal Medicine
DX: R07.9 Chest pain, unspecified (principal); M54.2 Cervicalgia; M79.602 Pain in left arm; K21.9 Gastro-esophageal reflux disease without esophagitis; I25.10 Atherosclerotic heart disease of native coronary artery without angina pectoris; I25.2 Old myocardial infarction; Z95.5 Presence of coronary angioplasty implant and graft; I10 Essential (primary) hypertension; E66.01 Morbid (severe) obesity due to excess calories; Z68.43 Body mass index [BMI] 50.0-59.9, adult; F17.210 Nicotine dependence, cigarettes, uncomplicated; J45.909 Unspecified asthma, uncomplicated; F31.9 Bipolar disorder, unspecified; F20.9 Schizophrenia, unspecified; Z59.0 Homelessness
CPT/HCPCS: 71045; 93005; 93306; 96372; 97161; 97165; 99285; G0378; 84484-PO; J1650

== ENCOUNTER → 2018-04-19 | Outpatient (CLI) | payer MEDICAID | LOC: FCPNEURO 20:00 | PROVIDERS: ATTEND Psychiatry & Neurology Sleep Medicine | DX: G47.33 Obstructive sleep apnea (adult) (pediatric) (principal) ==

== ENCOUNTER 2018-05-13 15:03 | Emergency (ER) | payer MEDICAID, OTHER ==
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
[2018-05-13] MEDS ORDERED: OLANZapine DISINTEGR 5 MG TAB PO ONE (15:33)
[2018-05-13 16:06] LABS: PLATELET COUNT 387 10^3/uL (150-400)
[2018-05-13] MEDS ORDERED: NICOTINE 21 MG/24 HR PATCH TD ONE (16:20)
[2018-05-13 18:02] VITALS: BP 160/119
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
--- NOTE | 2018-05-13 19:48 | ASMTTCLDSP ---
TLC Discharge Disposition Disposition: Answers: Discharge Disposition Notes: Notes: P was given a cab voucher back to the [facility] and will follow up with [facility]. Discharge Concerns/Recommendations: Notes: In consultation with [facility] ED physician, David Ellis MD, and Wade Layne MD concurred that pt does not appear to meet 27-65 criteria requiring psychiatric hospitalization as pt does not appear to be an imminent risk of harm to self/others/gravely disabled due to a mental illness condition. Psychiatrist vacating M1 Wade Layne MD Hold: Date and time M1 hold 05/13/2018 05:30 PM vacated (time format is hh:mm): Type of Hold: Answers: M1/72-hour Hold Date Signed: 05/13/2018 07:47 PM Electronically Signed By:Emerald Ferraro
== END 2018-05-13 18:01 | disposition home or self-care (01) ==
DX: F20.89 Other schizophrenia (principal)
CPT/HCPCS: 80305; G0480

== ENCOUNTER 2018-07-28 08:10 | Observation (INO) | payer MEDICAID ==
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
--- NOTE | 2018-07-28 08:27 | CPEKG ---
Test Reason : OPEN Blood Pressure : / mmHG Vent. Rate : 091 BPM Atrial Rate : 091 BPM P-R Int : 164 ms QRS Dur : 094 ms QT Int : 365 ms P-R-T Axes : 060 086 -22 degrees QTc Int : 450 ms Sinus rhythm Nonspecific T abnormalities, inferior leads Confirmed by Zion Gary ([id number]) on 07/28/2018 8:27:14 AM Referred By: Confirmed By:Zion Gary
[2018-07-28 08:37] LABS: PLATELET COUNT 346 10^3/uL (150-400)
[2018-07-28] MEDS ORDERED: traZODone 100 MG TAB PO PRN (10:47)
[2018-07-28] MEDS ORDERED: hydrOXYzine HCL 25 MG TAB PO PRN (10:47)
[2018-07-28] MEDS ORDERED: ALBUTEROL 60 PUFFS/8 GM MDI IH PRN (10:47)
--- NOTE | 2018-07-28 11:25 | ASMTLACE ---
ROSA M Acuity / Level of Answers: No Care: Did the patient have an inpatient admission? Comorbidities - select Answers: Coronary Artery Disease all that apply Previous myocardial infarction Other Notes: MONIK, GERD # of Emergency department Answers: 12+ visits in the last 6 months Social determinants Answers: Homelessness (street, half-way) Mental health diagnosis (anxiety, depression, pers onality disorders, etc.) Lack of community resources and/or lack of social support (no pcp, lives alone, transportation, cassie d) Score: 20 Date Signed: 07/28/2018 11:25 AM Electronically Signed By:Ela Patino RN
--- NOTE | 2018-07-28 11:29 | GHP ---
DATE OF ADMISSION: 07/28/2018 CHIEF COMPLAINT: Chest pain. HISTORY OF PRESENT ILLNESS: This is a 43-year-old man with history of [place] as well as multiple stents who presents with chest pain. This started at 6:30 this morning described as central chest stabbing with left arm numbness. He seemed to be made worse by moving around, not pleuritic and not positional. He received one nitroglycerin in ambulance on route which decreased the pain a little bit. A second nitroglycerin in the ED which took his pain from an 8 down to 5. Functional status has not really changed. He can walk about 0.25 mile. He has some nocturnal dyspnea which he attributes to sleep apnea. He has , otherwise, been taking all his medications. He stopped smoking in April. PAST MEDICAL/SURGICAL HISTORY: 1. Coronary artery disease status post stent to the LAD in April of 2018 after IVUS showed 65% stenosis. 2. Possible pericarditis. 3. Morbid obesity. 4. Schizophrenia. 5. Homelessness. MEDICATIONS: Please see medication reconciliation. ALLERGIES: Haldol. FAMILY HISTORY: No early coronary artery disease. SOCIAL HISTORY: Quit smoking in April. He does not drink. [facility] is homeless, [facility]. REVIEW OF SYSTEMS: A 10-point review of systems is conducted and is negative except per HPI. PHYSICAL EXAM: VITAL SIGNS: Blood pressure 122/70, heart rate 87, respiration rate 19, saturating at 98% on 2 L, temperature 36.9. GENERAL: The patient is a pleasant obese man who is resting comfortably in no acute distress. HEENT: Shows him to be normocephalic, atraumatic. CHEST AND CARDIOVASCULAR: Exam shows pain not to be reproducible. His rate has regular rate and rhythm. No murmurs, rubs, or gallops. He has trace to 1+ bilateral lower extremity edema and is pitting. PULMONARY: Exam shows him to have difficulty to hear breath sounds bilaterally but he is not in any respiratory distress, and I do not hear any adventitious breath sounds. ABDOMEN: Exam is obese, otherwise nontender, nondistended. SKIN: Exam shows no rash. : Exam with no Duarte. NEUROLOGIC : Exam shows him to be alert and oriented x3. He is moving all extremities. PSYCHIATRIC: Exam shows normal mood and affect. LABS: CBC is normal. Initial troponin is negative. DATA: 1. Chest x-ray, which I personally viewed and interpreted shows normal heart size, nothing acute. 2. EKG, which I personally viewed and interpreted, shows T-wave inversion in the inferior leads. This was present previously. Otherwise, there is nothing acute. IMPRESSION AND PLAN: 1. Chest pain in the setting of known coronary artery disease with a stent that was placed back in April: Discussed with Cardiology. Dr. Valerio would like to take him to the phlebotomist lab assistant today. Further workup will depend on the results of this coronary catheterization. 2. Recent smoking cessation: Congratulated him for quitting. 3. History of coronary artery disease: We will continue his cardiac medications including aspirin, statin, Plavix. 4. Morbid obesity: Weight loss encouraged. 5. Schizophrenia: We will continue his psychiatric medications including Abilify and Prozac. /[id number]/MODL MTDD
--- NOTE | 2018-07-28 11:29 | PDPROPOC ---
Sedation Plan of Care Sedation Plan of Care: vital signs stable, mental status noted, patient educated of risks, benefits, alternatives, patient can tolerate sedation ASA Classification: ASA 2 Planned drugs: fentanyl, midazolam Mallampati Score: Class 3 Mallampati Reference Image: Patient passed 3-3-2 rule?: Yes
[2018-07-28] MEDS ORDERED: MIDAZOLAM 2 MG/2 ML VIAL ONE (11:32)
[2018-07-28] MEDS ORDERED: fentaNYL 100 MCG/2 ML INJ ONE (11:32)
[2018-07-28] MEDS ORDERED: VERAPAMIL 5 MG/2 ML VIAL ONE (11:32)
[2018-07-28] MEDS ORDERED: HEPARIN 10,000 UNIT/10 ML MDV (1,000 UNIT/ML) ONE (11:32)
[2018-07-28] MEDS ORDERED: LIDOCAINE 1% 300 MG/30 ML SDV ONE (11:32)
[2018-07-28] MEDS ORDERED: IOPAMIDOL (ISOVUE-370) 150 ML BTL IV ONE (11:32)
--- NOTE | 2018-07-28 12:39 | GCON ---
DATE OF CONSULTATION: 07/28/2018 REFERRING PHYSICIAN: Oleg Whitney MD CHIEF COMPLAINT: We have been asked by Dr. Whitney to evaluate the patient with a chief complaint of chest pain. HISTORY OF PRESENT ILLNESS: The patient is a 43-year-old gentleman with known coronary artery diseas e, status post stenting of the left anterior descending coronary artery in March of 2018, who pre sents with a chief complaint of chest pain. Patient was in his usual state of health until approxima tely 7 a.m. this morning when he began to experience symptoms of chest pain. Chest pain is described as a sharp stabbing pain in the center of his chest. It was associated with left arm and shoulder d iscomfort. The chest pain was not associated with nausea, vomiting, or diaphoresis. Patient took ni troglycerin with improvement, but not resolution of his symptoms. When his symptoms did not resolve, he presented to the emergency department for further evaluation. His EKG demonstrated no acute ST o r T-wave changes. His initial troponin was within normal limits. Patient has continued to have inte rmittent episodes of chest pain. Patient denies fevers, chills, or cough. No history of orthopnea o r PND. Patient has been taking all of his medications, including aspirin and Plavix. PAST MEDICAL HISTORY: 1. Coronary artery disease. a. Patient reports previous history of myocardial infarction approximately 5 years ago in [place]. b. Status post stenting of left anterior descending coronary artery in March of 2018. 2. Hypertension. 3. Hyperlipidemia. 4. Schizophrenia. MEDICATIONS: Please see medicine reconciliation form. ALLERGIES: Haldol. SOCIAL HISTORY: [facility] He has been there for approximately a ye ar and a half. He quit smoking following his stent in March. He does not drink alcohol. FAMILY HISTORY: Notable for coronary artery disease in his father. REVIEW OF SYSTEMS: Ten-point review of systems is negative, except as noted in HPI. PHYSICAL EXAMINATION: GENERAL: The patient is sitting in the bed. He appears to be in no acute dis tress at this time. VITAL SIGNS: Temperature is afebrile. Pulse is 87, blood pressure 122/70, resp iratory rate is 19, SaO2 is 98% on 2 L nasal cannula. HEENT: Normocephalic, atraumatic. Extraocula r muscles intact. NECK: No JVD. No bruits. LUNGS: Clear to auscultation bilaterally. CARDIOVASC ULAR: Regular rate and rhythm. S1, S2. No murmurs, rubs, or gallops appreciated. ABDOMEN: Obese, nontender. Normoactive bowel sounds. Could not palpate aorta. No hepatosplenomegaly noted, althou gh physical exam is difficult secondary to abdominal girth. EXTREMITIES: Mild bilateral lower extre mity edema. SKIN: No evidence of rashes. NEURO: Patient is awake, alert, and oriented x3. LABORATORY: White blood cell count is 5.42, hemoglobin is 15.3, hematocrit is 47.5, platelet count i s 346. Sodium 137, potassium 4.5, chloride 106, CO2 24, BUN is 12, creatinine is 0.6. Troponin with in normal limits x1. EKG demonstrates sinus rhythm, normal axis, nonspecific inferolateral ST and T-wave changes. ASSESSMENT/PLAN: Patient is a 43-year-old gentleman with known coronary artery disease who is status post stenting of his left anterior descending coronary artery in March of 2018, who presents wit h recurrent chest pain consistent with his previous anginal symptoms. His EKG and biomarkers are wit hin normal limits. Reviewed options for risk stratification, including cardiac catheterization versu s admit for rule out myocardial infarction and stress testing. Patient wishes to pursue cardiac cath eterization. He is aware of the risks and benefits of procedure. We will arrange to have this perfo [facility]. /[id number]/MODL
[2018-07-28] MEDS ORDERED: OXYCODONE/APAP 5/325 TAB PO PRN (12:51)
[2018-07-28] MEDS ORDERED: NITROGLYCERIN 0.4 MG BTL SL PRN (12:51)
[2018-07-28] MEDS ORDERED: ATROPINE SULFATE 1 MG/10 ML SYR IVP PRN (12:51)
[2018-07-28] MEDS ORDERED: HYDROCODONE/APAP 5/325 TAB PO PRN (12:51)
[2018-07-28] MEDS ORDERED: ONDANSETRON 4 MG/2 ML VIAL IVP PRN (12:51)
--- NOTE | 2018-07-28 13:21 | ASMTLCPROG ---
Notes Note: Notes: [facility] clinician asked to do a "stat consult" due to pt's responses to [place] Suicide Scale questions. Per RN pt responded affirmatively to questions asking whether pt has ever wished to "be ", had any thoughts of killing himself, thoughts of how he might kill himself and had ever had intent on acting on them. Pt carries a diagnosis of schizoaffective disorder, depressive type. He has been psychiatrically hospitalized multiple times. He was last at the [facility] ED 05/13/2018 due to self-reported increased depression and SI. He reported that he was hospitalized last week in [place]. Per pt, his voices began to tell him to kill himself. He was in [place] so self-presented at a hospital where they placed him on an M1 and hospitalized him for 1 week. Pt states that "today, I do not want to ". He reports voices, but states they are not telling him to kill himself. He denies feeling depressed. He does express anxiety over a heart catheritization procedure that is to take place later today and his worry that he will be discharged to the halfway tonight as opposed to being able to spend the night in the hospital. His demeaner is pleasant and his mood both anxious and bright. Affect is mood congruent. He has gone through coordinated entry and has a permanent bed at the halfway. He sees Dr Mejía and clinician Erika Joshi at [facility]. He is prescribed psychiatric medication and is not consistently compliant. He was told to inform the staff if there are any changes in the content of his hallucinations or if he has any thoughts of dying. The nurses and hospitalist were alerted to his hx and his anxiety over procedure and length of stay. Pt is not currently found to be a safety threat to himself. TLC will again become involved if additional concerns arise. Date Signed: 07/28/2018 01:20 PM Electronically Signed By:Mary Casper
--- NOTE | 2018-07-28 15:07 | ASMTCMCOM ---
CM Note CM Note Notes: CM spoke with RN. Pt is an obese male who is homeless. Pt reports he has a counselor at [facility] who he reports is very helpful. Pt reports he hears voices and has a history of schizophrenia. CM contacted [facility] to link pt with services. Pt is scheduled to be discharged tomorrow to [facility]. CM to follow. Date Signed: 07/28/2018 03:06 PM Electronically Signed By:JEFFRY Hargrove
[2018-07-28] MEDS: GABAPENTIN 300 MG CAP PO SCH ×2 (16:13→19:56)
[2018-07-28] MEDS: PANTOPRAZOLE SODIUM 40 MG TAB PO SCH (19:54)
[2018-07-28] MEDS ORDERED: PRAZOSIN HCL 1 MG CAP PO SCH (21:00)
--- NOTE | 2018-07-28 21:42 | CPIP ---
DATE OF PROCEDURE: 07/28/2018 PROCEDURE: Coronary angiography. INDICATION: 1. Known coronary artery disease status post stenting of the left anterior descending coronary arter y. 2. Acute coronary syndrome with normal troponin. ACCESS: Patient was prepped and draped in sterile fashion. 1% lidocaine was used to anesthetize the left radial region. A 5-Namibian introducer sheath was placed selectively into the left radial artery via modified Seldinger technique. CORONARY ANGIOGRAPHY: A 6-Namibian JL4 was advanced to the left main coronary artery and images obtain ed. The left main coronary artery bifurcated into an LAD and circumflex coronary arteries. The left main coronary artery appeared normal. The left anterior descending coronary artery gave rise to 1 p rominent diagonal branch. The left anterior descending coronary artery was previously stented in the proximal segment. The previously placed stent was widely patent with no evidence of in-stent resten osis. The remainder of the vessel was free of any significant disease. Circumflex coronary artery w as a moderate-sized vessel but was nondominant. Circumflex coronary artery appeared normal. A 6-Nehemias [facility] JR4 was advanced to the right coronary artery and images obtained. The right coronary artery vanita eared normal. LEFT VENTRICULOGRAPHY: Left ventriculography was deferred. COMPLICATIONS: None. CONCLUSIONS: 1. Patent left anterior descending stent with no evidence of in-stent restenosis. 2. No significant obstructive coronary artery disease. PLAN: For medical management. /[id number]/MODL
[2018-07-29 07:47] VITALS: BP 138/77
[2018-07-29] MEDS ORDERED: LISINOPRIL 10 MG TAB PO SCH (09:00)
[2018-07-29] MEDS ORDERED: ASPIRIN 325 MG TAB PO SCH (09:00)
[2018-07-29] MEDS ORDERED: ARIPiprazole 10 MG TAB PO SCH (09:00)
[2018-07-29] MEDS ORDERED: ATORVASTATIN CALCIUM 20 MG TAB PO SCH (09:00)
[2018-07-29] MEDS ORDERED: BUDESONIDE/FORMOTEROL 160/4.5 60 PUFFS/MDI IH SCH (09:00)
[2018-07-29] MEDS ORDERED: FLUoxetine 20 MG CAP PO SCH (09:00)
[2018-07-29] MEDS ORDERED: CLOPIDOGREL BISULFATE 75 MG TAB PO SCH (09:00)
[2018-07-29] MEDS ORDERED: CHLORTHALIDONE 25 MG TAB PO SCH (09:00)
[2018-07-29] MEDS: PANTOPRAZOLE SODIUM 40 MG TAB PO SCH (09:47)
[2018-07-29] MEDS: GABAPENTIN 300 MG CAP PO SCH (09:47)
--- NOTE | 2018-07-29 11:16 | ASMTDCNOTE ---
Case Management Discharge Discharge Order Complete? Answers: Yes Patient to Obtain Answers: Independently Medications Transportation Arranged Answers: Bus Tokens Discharge Comments Notes: Patient is discharging to the [facility]. We reserved a bed for patient. Patient was given a bus pass to get to the nursing home. No further needs. Date Signed: 07/29/2018 11:15 AM Electronically Signed By:Jenn Robertson LCSW
--- NOTE | 2018-07-29 11:19 | ASDISCHSUM ---
Discharge Information Plan Status:Home with No Needs Medically Cleared to Leave:07/28/2018 Discharge Date:07/28/2018 CM D/C Disposition:Home, Routine, Self-Care ADT D/C Disposition: Projected Discharge Date:07/29/2018 12:00 AM Transportation at D/C:Bus Ticket Discharge Delay Reason: Follow-Up Date:07/29/2018 12:00 AM Discharge Slot:1 - 8:01 am - 12:00 noon Final Diagnosis:Congestive Heart Failure Placement Information Patient Contact Information Contact Name:JACQUELYNPAULINO Relationship: Address: Home Phone: Work Phone: City: Alternate Phone: State/Zip Code: Email: Financial Information Financial Class:Medicaid Primary Plan Desc:[employer] Primary Plan Number:[id number] Secondary Plan Desc: Secondary Plan Number: Assessment Information LACE LACE Acuity / Level of Answers: No Care: Did the patient have an inpatient admission? Comorbidities - select Answers: Coronary Artery Disease all that apply Previous myocardial infarction Other Notes: MONIK, GERD # of Emergency department Answers: 12+ visits in the last 6 months Social determinants Answers: Homelessness (street, care home) Mental health diagnosis (anxiety, depression, pers onality disorders, etc.) Lack of community resources and/or lack of social support (no pcp, lives alone, transportation, cassie d) Score: 20 Date Signed: 07/28/2018 11:25 AM Electronically Signed By:Ela Patino RN [facility] Progress Note Notes Note: Notes: [facility] clinician asked to do a "stat consult" due to pt's responses to [place] Suicide Scale questions. Per RN pt responded affirmatively to questions asking whether pt has ever wished to "be ", had any thoughts of killing himself, thoughts of how he might kill himself and had ever had intent on acting on them. Pt carries a diagnosis of schizoaffective disorder, depressive type. He has been psychiatrically hospitalized multiple times. He was last at the [facility] ED 05/13/2018 due to self-reported increased depression and SI. He reported that he was hospitalized last week in [place]. Per pt, his voices began to tell him to kill himself. He was in [place] so self-presented at a hospital where they placed him on an M1 and hospitalized him for 1 week. Pt states that "today, I do not want to ". He reports voices, but states they are not telling him to kill himself. He denies feeling depressed. He does express anxiety over a heart catheritization procedure that is to take place later today and his worry that he will be discharged to the care home tonight as opposed to being able to spend the night in the hospital. His demeaner is pleasant and his mood both anxious and bright. Affect is mood congruent. He has gone through coordinated entry and has a permanent bed at the care home. He sees Dr Mejía and clinician Erika Joshi at [facility]. He is prescribed psychiatric medication and is not consistently compliant. He was told to inform the staff if there are any changes in the content of his hallucinations or if he has any thoughts of dying. The nurses and hospitalist were alerted to his hx and his anxiety over procedure and length of stay. Pt is not currently found to be a safety threat to himself. TLC will again become involved if additional concerns arise. Date Signed: 07/28/2018 01:20 PM Electronically Signed By:Mary Casper [facility] CM Progress Note ROHINI Note CM Note Notes: CM spoke with RN. Pt is an obese male who is homeless. Pt reports he has a counselor at [facility] who he reports is very helpful. Pt reports he hears voices and has a history of schizophrenia. CM contacted [facility] to link pt with services. Pt is scheduled to be discharged tomorrow to [facility]. CM to follow. Date Signed: 07/28/2018 03:06 PM Electronically Signed By:JEFFRY Hargrove Case Management Discharge Plan Note Case Management Discharge Discharge Order Complete? Answers: Yes Patient to Obtain Answers: Independently Medications Transportation Arranged Answers: Bus Tokens Discharge Comments Notes: Patient is discharging to the [facility]. We reserved a bed for patient. Patient was given a bus pass to get to the care home. No further needs. Date Signed: 07/29/2018 11:15 AM Electronically Signed By:Jenn Robertson LCSW Intervention Information
--- NOTE | 2018-07-29 12:41 | PDDCSUM ---
Discharge Summary Discharge Summary: Date of Admission: 07/28/2018 Date of Discharge: 07/29/2018 Consults: Cardiology Procedures: C Followup: PCP, Cardiology Hospital Course Problem List: 1. Chest Pain in Setting of Known CAD - LAD stent placed in 04/2018 - Dr. Valerio took patient for [facility] on 07/28 which showed patient LAD stent, no significant CAD - Continue home Plavix, ASA 2. Hx of CAD - LHC as above - Continue home ASA, Statin, Plavix 3. Morbid Obesity - Counseled on weight loss 4. Schizophrenia - Continue home psych meds including Abilify and Prozac 5. Homelessness - CM consulted, reserved bed at [facility] Time spent on discharge was >35 minutes with >50% of time spent on patient education and counseling.
== END 2018-07-29 12:27 | disposition home or self-care (01) ==
LOC: EDUNIT# → F2W 10:20
PROVIDERS: ADMIT Student in an Organized Health Care Education/Training Program; ATTEND Internal Medicine
DX: R07.89 Other chest pain (principal); I25.10 Atherosclerotic heart disease of native coronary artery without angina pectoris; I25.2 Old myocardial infarction; E66.01 Morbid (severe) obesity due to excess calories; F20.9 Schizophrenia, unspecified; I10 Essential (primary) hypertension; E78.5 Hyperlipidemia, unspecified; G47.33 Obstructive sleep apnea (adult) (pediatric); Z68.43 Body mass index [BMI] 50.0-59.9, adult; Z87.891 Personal history of nicotine dependence; Z59.0 Homelessness; Z79.82 Long term (current) use of aspirin; Z95.5 Presence of coronary angioplasty implant and graft
CPT/HCPCS: 71046; 93005; 93454; 99285; C1769; G0378; 84484-ER; J1644; J2250; J3010; Q9967

== ENCOUNTER 2018-08-25 14:58 | Emergency (ER) | payer MEDICAID ==
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
[2018-08-25 16:38] LABS: PLATELET COUNT 326 10^3/uL (150-400)
[2018-08-25] MEDS ORDERED: fentaNYL 100 MCG/2 ML INJ IVP ONE (16:41)
[2018-08-25] MEDS ORDERED: ONDANSETRON 4 MG/2 ML VIAL IVP ONE (16:41)
[2018-08-25] MEDS ORDERED: IOHEXOL 300 mgI/ML (OMNIPAQUE) 150 ML BTL IV ONE (17:08)
[2018-08-25 18:33] VITALS: BP 155/100
[2018-08-25] MEDS ORDERED: ONDANSETRON 4MG PREPACK#2 BTL TAKEHOME ONE (18:37)
== END 2018-08-25 19:03 | disposition home or self-care (01) ==
DX: K52.9 Noninfective gastroenteritis and colitis, unspecified (principal); I25.10 Atherosclerotic heart disease of native coronary artery without angina pectoris; E66.01 Morbid (severe) obesity due to excess calories; Z95.5 Presence of coronary angioplasty implant and graft
CPT/HCPCS: 96374; J2405; J3010; Q9967

== ENCOUNTER 2018-09-04 12:34 | Emergency (ER) | payer MEDICAID ==
[2018-09-04] MEDS ORDERED: NS 500 ML IV ONE (13:00)
[2018-09-04 13:12] LABS: PLATELET COUNT 369 10^3/uL (150-400)
[2018-09-04 13:26] LABS: INR 0.95 (0.83-1.16); PROTIME(PATIENT) 12.3 SEC (12.0-15.0)
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
[2018-09-04 17:14] VITALS: BP 172/88
--- NOTE | 2018-09-06 09:09 | CPEKG ---
Test Reason : OPEN Blood Pressure : / mmHG Vent. Rate : 086 BPM Atrial Rate : 086 BPM P-R Int : 179 ms QRS Dur : 089 ms QT Int : 367 ms P-R-T Axes : 033 079 027 degrees QTc Int : 439 ms Sinus rhythm Confirmed by Eloise Hester ([id number]) on 09/06/2018 9:08:39 AM Referred By: PHYSICIAN ED Confirmed By:Eloise Hester
== END 2018-09-04 17:22 | disposition home or self-care (01) ==
LOC: EDUNIT#
DX: R07.9 Chest pain, unspecified (principal); E86.9 Volume depletion, unspecified; I25.10 Atherosclerotic heart disease of native coronary artery without angina pectoris; I10 Essential (primary) hypertension; Z95.828 Presence of other vascular implants and grafts; F17.200 Nicotine dependence, unspecified, uncomplicated
CPT/HCPCS: 84484-ER

== ENCOUNTER 2018-09-16 14:32 | Emergency (ER) | payer MEDICAID ==
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
[2018-09-16 15:18] LABS: PLATELET COUNT 330 10^3/uL (150-400)
--- NOTE | 2018-09-16 15:31 | CPEKG ---
Test Reason : OPEN Blood Pressure : / mmHG Vent. Rate : 103 BPM Atrial Rate : 103 BPM P-R Int : 166 ms QRS Dur : 096 ms QT Int : 349 ms P-R-T Axes : 058 079 -33 degrees QTc Int : 457 ms Sinus tachycardia Probable left atrial enlargement Left ventricular hypertrophy Nonspecific T abnormalities, inferior leads ST elev, probable normal early repol pattern ST elevation in V3 not seen on 07/28/18 Confirmed by Abner Anderson ([id number]) on 09/16/2018 3:31:11 PM Referred By: ABNER ANDERSON Confirmed By:Abner Anderson
[2018-09-16] MEDS: NITROGLYCERIN 0.4 MG BTL SL PRN ×3 (16:01→16:50)
[2018-09-16 18:28] VITALS: BP 107/68
--- NOTE | 2018-09-16 21:35 | CPEKG ---
Test Reason : OPEN Blood Pressure : / mmHG Vent. Rate : 094 BPM Atrial Rate : 095 BPM P-R Int : 162 ms QRS Dur : 095 ms QT Int : 362 ms P-R-T Axes : 054 087 -18 degrees QTc Int : 453 ms Sinus rhythm Left ventricular hypertrophy Borderline T abnormalities, inferior leads ST elev, probable normal early repol pattern Confirmed by Abner Anderson ([id number]) on 09/16/2018 9:34:43 PM Referred By: ABNER ANDERSON Confirmed By:Abner Anderson
== END 2018-09-16 18:46 | disposition home or self-care (01) ==
LOC: EDUNIT#
DX: R07.9 Chest pain, unspecified (principal); I10 Essential (primary) hypertension; J45.909 Unspecified asthma, uncomplicated; Z95.828 Presence of other vascular implants and grafts
CPT/HCPCS: 84484-ER

== ENCOUNTER 2018-09-26 13:42 | Emergency (ER) | payer MEDICAID ==
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
[2018-09-26 15:13] LABS: PLATELET COUNT 355 10^3/uL (150-400)
[2018-09-26] MEDS ORDERED: metFORMIN HCL 500 MG TAB PO ONE (16:31)
--- NOTE | 2018-09-26 17:26 | ASDISCHSUM ---
Discharge Information Plan Status:Homeless/Prison Medically Cleared to Leave: Discharge Date: CM D/C Disposition:Streets (Homeless) ADT D/C Disposition:Home, Routine, Self-Care Projected Discharge Date: Transportation at D/C:Medicaid Transportation Discharge Delay Reason: Follow-Up Date: Discharge Slot: Final Diagnosis: Placement Information Patient Contact Information Contact Name:ALIA Relationship: Address: Home Phone: Work Phone: City: Alternate Phone: State/Zip Code: Email: Financial Information Financial Class:Medicaid Primary Plan Desc:MEDICAID HEALTH FIRST [employer]ER [employer]ER Primary Plan Number:[id number] Secondary Plan Desc: Secondary Plan Number: Assessment Information Intervention Information Intervention Type:Health Clinic Date of Service:09/26/2018 05:23 PM Patient Type:Emergency Room Staff Member:CORY Patino Sharon Hours:0.25 Discipline:Model And Dye Person Severity: Comment:Contacted [facility]; spoke w/CORY Schilling, and relayed ED visit info and plan for pt to present to the [facility] tomorrow morning Intervention Type:Transportation Date of Service:09/26/2018 05:23 PM Patient Type:Emergency Room Staff Member:CORY Patino Sharon Hours:0.5 Discipline:Model And Dye Person Severity: Comment:Medicaid cab arranged through [employer] for pt to return to [facility] where he has a reserved bed. [employer] CONF # [id number]
[2018-09-26 17:32] VITALS: BP 118/78
== END 2018-09-26 17:45 | disposition home or self-care (01) ==
DX: E13.8 Other specified diabetes mellitus with unspecified complications (principal); N50.819 Testicular pain, unspecified; R30.0 Dysuria; R35.0 Frequency of micturition; I25.10 Atherosclerotic heart disease of native coronary artery without angina pectoris; E66.01 Morbid (severe) obesity due to excess calories; Z59.0 Homelessness

== ENCOUNTER 2018-10-12 20:13 | Inpatient (IN) | payer MEDICAID ==
[2018-10-12 21:02] LABS: PLATELET COUNT 366 10^3/uL (150-400)
[2018-10-12 21:04] LABS: INR 0.94 (0.83-1.16); PROTIME(PATIENT) 12.2 SEC (12.0-15.0)
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
[2018-10-13] MEDS ORDERED: ONDANSETRON DISINTEGRATING 4 MG TAB PO PRN ×2 (01:00→08:42)
[2018-10-13] MEDS ORDERED: ONDANSETRON 4 MG/2 ML VIAL IVP PRN (01:00)
[2018-10-13] MEDS ORDERED: ACETAMINOPHEN 325 MG TAB PO PRN (01:00)
[2018-10-13] MEDS ORDERED: NITROGLYCERIN 0.4 MG BTL SL PRN ×2 (01:02→14:33)
[2018-10-13] MEDS ORDERED: ASPIRIN 325 MG TAB PO ONE (01:07)
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
[2018-10-13 06:14] LABS: PLATELET COUNT 336 10^3/uL (150-400)
[2018-10-13] MEDS ORDERED: hydrOXYzine HCL 50 MG TAB PO PRN (08:42)
[2018-10-13] MEDS ORDERED: ALBUTEROL 60 PUFFS/8 GM MDI IH PRN (08:42)
[2018-10-13] MEDS: ENOXAPARIN 60 MG/0.6 ML SYR SC SCH ×2 (09:42→19:56)
[2018-10-13] MEDS ORDERED: GABAPENTIN 300 MG CAP ONE (10:24)
[2018-10-13] MEDS: ATORVASTATIN CALCIUM 20 MG TAB PO SCH (10:57)
[2018-10-13] MEDS: ISOSORBIDE MONONITRATE 30 MG TAB.SR PO SCH (10:57)
[2018-10-13] MEDS: ARIPiprazole 10 MG TAB PO SCH (10:57)
[2018-10-13] MEDS: CHLORTHALIDONE 25 MG TAB PO SCH (10:58)
[2018-10-13] MEDS: LISINOPRIL 10 MG TAB PO SCH (10:58)
[2018-10-13] MEDS: CLOPIDOGREL BISULFATE 75 MG TAB PO SCH (11:02)
[2018-10-13] MEDS: GABAPENTIN 300 MG CAP PO SCH ×3 (11:02→21:43)
[2018-10-13] MEDS ORDERED: IOPAMIDOL (ISOVUE 370) 100 ML BTL IV ONE ×2 (11:14→11:52)
--- NOTE | 2018-10-13 11:51 | PDCARCONS ---
Cardiology Consult Reason for Consult: Chest pain, h/o CAD s/p LAD PCI Chief Complaint: Chest pain Requesting Physician: Silvina Hernandez DO History of Present Illness: Mr. Alexander is a pleasant 43yo male with a h/o CAD s/p LAD PCI (03/2018), HTN, asthma, obesity, MONIK, and a significant psychiatric history. He presented to the ED last night for further evaluation of chest discomfort, which radiation to the left arm and was associated with moderate activity intolerance. Symptoms started at roughly 1945 last night and persisted for about 7 hours. No recurrence of chest discomfort or other associated symptoms since that time. Prior to onset of chest discomfort last night, patient was in his usual state of health aside from mild nausea x1 week. No dyspnea, orthopnea, lightheadedness , dizziness, syncope, or pre-syncope. He has noted mild BLE edema recently, this is new for him. Negative serial troponins in the ED. Stable 12-lead ECG without ischemic changes. Coronary angiogram 07/2018 demonstrated widely patent LAD stent with nonobstructive CAD. Cath images reviewed today. History Information - Allergies/Home Medication List Allergies/Adverse Reactions: haloperidol [From Haldol] Allergy (Verified 10/13/18 08:46) Other-Enter Comments Home Medications: ARIPiprazole [Abilify] 20 mg PO DAILY 12/29/17 [Last Taken 10/12/18 09:00] Albuterol [Proventil Inhaler HFA (*)] 1 - 2 inh IH Q4 PRN 02/24/18 [Last Taken 04/07/18 09:00] Atorvastatin Calcium [Lipitor 20 mg (*)] 20 mg PO DAILY 02/24/18 [Last Taken 12/25 09:00] Chlorthalidone [Chlorthalidone 25 mg (*)] 50 mg PO DAILY 04/04/18 [Last Taken 09:00] Lisinopril [Zestril 10 mg (*)] 15 mg PO DAILY 04/04/18 [Last Taken 10/12/18 09: 00] amLODIPine BESYLATE [Norvasc 10 mg (*)] 10 mg PO DAILY 04/04/18 [Last Taken 12/25 09:00] traZODone [traZODONE 100MG (*)] 100 mg PO HS 04/04/18 [Last Taken 10/12/18 21:00 ] Aspirin [Aspirin 325 mg (*)] 325 mg PO DAILY 05/28/18 [Last Taken 10/12/18 09:00 ] Flovent 110 MCG Hfa MDI (*) 1 puffs IH DAILY 10/13/18 [Last Taken 10/12/18 09:00 ] Gabapentin [Gabapentin] 600 mg PO TID 10/13/18 [Last Taken 10/12/18 21:00] Nitroglycerin [Nitrostat 0.4 mg (*)] 0.4 mg SL Q5M PRN 10/13/18 [Last Taken Unknown] Prazosin HCl [Prazosin HCl] 2 mg PO HS 10/13/18 [Last Taken 10/12/18 21:00] hydrOXYzine HCL [hydrOXYzine HCL] 50 mg PO Q6H PRN 10/13/18 [Last Taken 10/12/18 ] Past Medical History: - Past Medical History coronary artery disease, hypertension, psychiatric history - Surgical History Reports: coronary stent - Family History Positive for: non-pertinent - Social History Smoking Status: Former smoker Additional social history: Homeless Cardiac History - Cardiac History Past Cardiac History: CAD, PCI Cardiac Risk Factors: hypertension (>140/90), male Physical Exam Physical Exam: Temp Pulse Resp BP Pulse Ox 36.6 C 91 17 113/67 95 10/13/18 05:32 10/13/18 11:00 10/13/18 11:00 10/13/18 11:00 10/13/18 11:00 O2 (L/minute) 2 Constitutional: no apparent distress, appears nourished, obese, unkempt Eyes: PERRL, anicteric sclera Ears, Nose, Mouth, Throat: moist mucous membranes Cardiovascular: regular rate and rhythym, no murmur, rub, or gallop Respiratory: no respiratory distress, no rales or rhonchi, clear to auscultation Gastrointestinal: normoactive bowel sounds, soft, non-tender abdomen, no palpable masses Skin: warm, normal color, no rashes or abrasions, no fluctuance, no induration, No mottled Musculoskeletal: full muscle strength, normal joint ROM Neurologic: AAOx3 Psychiatric: interacting appropriately, not anxious, not encephalopathic Lab and Imaging 10/13/18 05:58 10/13/18 05:58 WBC 5.57 10^3/uL (3.80-9.50) 10/13/18 05:58 RBC 5.06 10^6/uL (4.40-6.38) 10/13/18 05:58 Hgb 13.9 g/dL (13.7-17.5) 10/13/18 05:58 Hct 43.2 % (40.0-51.0) 10/13/18 05:58 MCV 85.4 fL (81.5-99.8) 10/13/18 05:58 MCH 27.5 pg (27.9-34.1) L 10/13/18 05:58 MCHC 32.2 g/dL (32.4-36.7) L 10/13/18 05:58 RDW 15.0 % (11.5-15.2) 10/13/18 05:58 Plt Count 336 10^3/uL (150-400) 10/13/18 05:58 MPV 9.6 fL (8.7-11.7) 10/13/18 05:58 Neut % (Auto) 55.0 % (39.3-74.2) 10/13/18 05:58 Lymph % (Auto) 28.5 % (15.0-45.0) 10/13/18 05:58 [place] % (Auto) 11.0 % (4.5-13.0) 10/13/18 05:58 Eos % (Auto) 4.1 % (0.6-7.6) 10/13/18 05:58 Baso % (Auto) 0.7 % (0.3-1.7) 10/13/18 05:58 Nucleat RBC Rel Count 0.0 % (0.0-0.2) 10/13/18 05:58 Absolute Neuts (auto) 3.06 10^3/uL (1.70-6.50) 10/13/18 05:58 Absolute Lymphs (auto) 1.59 10^3/uL (1.00-3.00) 10/13/18 05:58 Absolute Monos (auto) 0.61 10^3/uL (0.30-0.80) 10/13/18 05:58 Absolute Eos (auto) 0.23 10^3/uL (0.03-0.40) 10/13/18 05:58 Absolute Basos (auto) 0.04 10^3/uL (0.02-0.10) 10/13/18 05:58 Absolute Nucleated RBC 0.00 10^3/uL (0-0.01) 10/13/18 05:58 Immature Gran % 0.7 % (0.0-1.1) 10/13/18 05:58 Immature Gran # 0.04 10^3/uL (0.00-0.10) 10/13/18 05:58 PT 12.2 SEC (12.0-15.0) 10/12/18 20:15 INR 0.94 (0.83-1.16) 10/12/18 20:15 APTT 32.8 SEC (23.0-38.0) 10/12/18 20:15 D-Dimer 0.66 ug/mLFEU (0.00-0.50) H 10/13/18 05:58 Sodium 138 mEq/L (135-145) 10/13/18 05:58 Potassium 4.5 mEq/L (3.5-5.2) 10/13/18 05:58 Chloride 103 mEq/L (97-110) 10/13/18 05:58 Carbon Dioxide 26 mEq/l (22-31) 10/13/18 05:58 Anion Gap 9 mEq/L (6-14) 10/13/18 05:58 BUN 13 mg/dL (7-23) 10/13/18 05:58 Creatinine 0.8 mg/dL (0.7-1.3) 10/13/18 05:58 Estimated GFR > 60 10/13/18 05:58 Glucose 107 mg/dL (70-100) H 10/13/18 05:58 Calcium 9.0 mg/dL (8.5-10.4) 10/13/18 05:58 Phosphorus 3.8 mg/dL (2.5-4.5) 10/13/18 05:58 Magnesium 2.0 mg/dL (1.6-2.3) 10/13/18 05:58 POC Troponin I 0.00 ng/mL (0.00-0.08) 10/12/18 23:32 Troponin I < 0.012 ng/mL (0.000-0.034) 10/13/18 05:58 NT-Pro-B Natriuret Pep 27 pg/mL (0-125) 10/13/18 01:00 Visualized and Interpreted EKG results: Yes EKG additional interpertation: Stable ECG compared to 07/2018 without ischemic changes Echocardiogram: Pending A/P Assessment: 1. CAD s/p LAD PCI 03/2018 2. Chest pain: frequent recurrence of chest pain since his LAD PCI. Unclear etiology. Coronary angiogram 07/2018 was reviewed, which demonstrates widely patent LAD stent without obstructive CAD. Continued recurrence despite medical therapy with Imdur and calcium-channel blockers. Beta-blockers are contraindicated due to his history of asthma. Negative serial troponins. 12- lead ECG without ischemic changes, stable ECG compared to 07/2018 prior to his recent angiogram 3. Hypertension: Well-controlled 4. Obesity 5. MONIK 6. Psychiatric history Plan: 1. Echocardiogram and d-dimer 2. Chest CT +/- angiogram pending d-dimer results 3. Admit for further evaluation and rule out 4. Cardiology will continue to follow 5. Consider Ranexa if no acute etiology of symptoms is identified
--- NOTE | 2018-10-13 12:14 | ASMTLACE ---
ROSA M Comorbidities - select Answers: Coronary Artery Disease all that apply Previous myocardial infarction # of Emergency department Answers: 5-8 visits in the last 6 months Social determinants Answers: History of substance abuse (ETOH, street drugs, prescription drugs, etc.) Homelessness (street, nursing home) Mental health diagnosis (anxiety, depression, pers onality disorders, etc.) Score: 16 Date Signed: 10/13/2018 12:14 PM Electronically Signed By:Brandi Barroso RN
--- NOTE | 2018-10-13 12:26 | ASMTCMCOM ---
CM Note CM Note Notes: Chart reviewed. Patient is well known to the ED and this CM. Patient arrived yesterday evening with c/o CP and is currently admitted to observation. This CM left a VM with Tonie at [facility] regarding patient's frequent ED visits and current admission. I have also LM with Isra at [facility] to inform of admission to hospital CM to follow and assist with discharge planning/return to [facility] Date Signed: 10/13/2018 12:25 PM Electronically Signed By:Brandi Barroso RN
--- NOTE | 2018-10-13 12:46 | ECHO ---
[email or web address] [address] [address] Main: [phone] Echocardiography Examination Transthoracic Name: JUSTO AGRAWAL MR#: [id number] Study Date: 10/13/2018 Study Time: 10:16 AM Date of : 1975 Age: 43 year(s) Height: 180.3 cm (71 in.) Weight: 169.19 kg (373 lb.) BSA: 2.75 m2 Gender: Male Examination: Echo Contrast: Image Quality: Adequate Rhythm: Normal sinus rhythm Heart Rate: 90 bpm BP: 107 mmHg/71 mmHg Indication: Chest Pain, Hx of Stents Procedure Staff Referring Physician: [place] Utility Worker: Tyler Ambriz RDCS Reading Physician: Lg Jiménez MD Requesting Provider: Ordering Physician: Lg Jiménez MD Indication: Chest Pain, Hx of Stents Measurements Chambers AV/MV Label Value Normal Value Label Value Normal Value LVOT Vmax 1.2 m/s (0.7m/s - 1.1m/s) AV PGmax 9 mmHg LVOTd 2.1 cm (1.9cm - 2.1cm) AV PGmean 5 mmHg LVOT PGmax 6 mmHg AV Vmax 1.51 m/s LVDd, 2D 5 cm (4.2cm - 5.9cm) AMINA (Vmax) 2.8 cm2 LVDs, 2D 2.6 cm (2.1cm - 4cm) AMINA (VTI) 3.8 cm2 IVSd, 2D 1 cm (0.6cm - 1.1cm) MV E Vmax 0.85 m/s LVPWd, 2D 1.1 cm (0.6cm - 1cm) MV A Vmax 0.77 m/s LVEF, 2D 80 % (54% - 74%) MV E/A 1.1 LVOT PGmean 3 mmHg MV E/E' lateral 10.6 LVOT Vmean 0.82 m/s MV E/E' septal 11.3 (0.5 - 1.7) RVDd, 2D 2.3 cm (1.9cm - 3.8cm) MV E' septal 0.08 m/s LA Volume, BP 46 ml (18ml - 58ml) MV E' lateral 0.08 m/s LAESV index, BP 16.7 ml/m2 MV E/E' mean 10.62 Additional Vessels MV E' mean 0.08 m/s Label Value Normal Value TV/PV AoAsc 3 cm Label Value Normal Value AoRoot, MM 3.5 cm (2.2cm - 3.7cm) PV PGmax 8 mmHg PV Vmax, Caliper 1.38 m/s (0.6m/s - 0.9m/s) Patient: JUSTO AGRAWAL Study Date: 10/13/2018 Page 1 of 2 10:16 AM Conclusions Left Ventricle: Normal global systolic left ventricular function. Left ventricular diastolic function parameters are normal. Pericardium: No pericardial effusion. Findings Left Ventricle: Left ventricle is normal in size. Normal global systolic left ventricular function. EF range is estimated at 75 % - 80 %. There is mild concentric left ventricular hypertrophy. There are no regional wall motion abnormalities. Left ventricular diastolic function parameters are normal. Right Ventricle: Normal size right ventricle. Left Atrium: The left atrium is normal in size. Right Atrium: The right atrium is normal in size. Mitral Valve: Mitral valve appears structurally normal. No mitral regurgitation. No mitral valve stenosis. Aortic Valve: The aortic valve is structurally normal and trileaflet. No aortic valve regurgitation. There is no aortic stenosis. Tricuspid Valve: Tricuspid valve leaflets are normal in appearance and function. Trivial tricuspid regurgitation. Pulmonary artery pressure cannot be assessed due to inadequate TR signal. Pulmonic Valve: Pulmonic leaflets are normal in appearance and function. No pulmonic valve regurgitation is evident. Aorta: The aorta is normal. The aortic root size in M-mode measures 3.5 cm. The ascending aorta measures 3.0 cm. Aorta Measurements AoRoot, MM is 3.5 cm. IVC: The inferior vena cava is poorly visualized. Pericardium: No pericardial effusion. Exam Details Procedure Ordered: Echo Image Quality: Adequate (No Signature Object) Patient: JUSTO AGRAWAL Study Date: 10/13/2018 Page 2 of 2 10:16 AM [id number]
[2018-10-13] MEDS: PANTOPRAZOLE SODIUM 40 MG TAB PO SCH ×2 (13:19→19:56)
--- NOTE | 2018-10-13 14:33 | HOSPPROG ---
Hospitalist Progress Note Assessment/Plan: Chest pain - 07/2018 Cath (reviewed with Dr. Jiménez) revealed patent stent and no other culprit lesions. EKG non-ischemic, trops neg x2. - dimer elevated, CTA neg for central PE, though poor visualization of segmental /subsegmental vessels. No aortic dissection or aneurysm. - echo with nl EF, no WMA and no pericardial effusion - query microvascular angina, will try addition of Ranexa - prn GI cocktail if symptoms recur CAD - S/p RIMA to LAD on 04/04/18. Cardiac cath on 07/26 demonstrated patent stent. - Continue DAPT, statin HTN - Continue home medications Schizophrenia Severe obesity - BMI >50 Diet - Regular Code - Full Ppx - LMWH Dispo - Change to inpt for ongoing evaluation and management of recurrent chest pain Subjective: Pt feels fine now. Denies chest pain. Says when he gets the pain intermittently, it feels like a cramp in the center of his chest. No SOB, diaphoresis, nausea or weakness. Objective: Vital Signs Temp Pulse Resp BP Pulse Ox 36.9 C 91 20 127/63 H 94 10/13/18 12:55 10/13/18 12:55 10/13/18 12:55 10/13/18 12:55 10/13/18 12:55 Laboratory Results 10/13/18 05:58 10/13/18 05:58 10/12/18 10/13/18 10/14/18 05:59 05:59 05:59 Intake Total 100 Output Total 650 Balance -550 PT 12.2 SEC (12.0-15.0) 10/12/18 20:15 INR 0.94 (0.83-1.16) 10/12/18 20:15 - Physical Exam Constitutional: no apparent distress, obese Eyes: PERRL Ears, Nose, Mouth, Throat: moist mucous membranes Cardiovascular: regular rate and rhythym Respiratory: no respiratory distress, clear to auscultation Gastrointestinal: normoactive bowel sounds, soft, non-tender abdomen Skin: warm Musculoskeletal: full muscle strength Neurologic: AAOx3 Psychiatric: interacting appropriately ICD10 Worksheet Patient Problems: Problems Problem Status Onset Chest discomfort Acute Angina at rest Acute Chest pain Acute Congestive heart failure Acute
[2018-10-13] MEDS ORDERED: FLUTICASONE 110 MCG IH SCH (14:45)
[2018-10-13] MEDS: RANOLAZINE 500 MG TAB.ER PO SCH ×2 (15:22→19:56)
[2018-10-13] MEDS ORDERED: MAG HYDROX/AL HYDROX/SIMETH 30 ML UDCUP PO PRN (15:41)
[2018-10-13] MEDS ORDERED: HYOSCYAMINE SULFATE 0.125 MG TAB PO PRN (15:41)
[2018-10-13] MEDS ORDERED: LIDOCAINE 2% VISCOUS 15 ML UDCUP PO PRN (15:41)
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
[2018-10-13] MEDS ORDERED: traZODone 100 MG TAB PO SCH (21:00)
[2018-10-13] MEDS ORDERED: PRAZOSIN HCL 1 MG CAP PO SCH (21:00)
[2018-10-14 07:55] VITALS: BP 113/89
[2018-10-14] MEDS: PANTOPRAZOLE SODIUM 40 MG TAB PO SCH (08:10)
[2018-10-14] MEDS: ENOXAPARIN 60 MG/0.6 ML SYR SC SCH (08:10)
[2018-10-14] MEDS: CHLORTHALIDONE 25 MG TAB PO SCH (08:10)
[2018-10-14] MEDS: GABAPENTIN 300 MG CAP PO SCH (08:10)
[2018-10-14] MEDS: ISOSORBIDE MONONITRATE 30 MG TAB.SR PO SCH (08:10)
[2018-10-14] MEDS: LISINOPRIL 10 MG TAB PO SCH (08:10)
[2018-10-14] MEDS: RANOLAZINE 500 MG TAB.ER PO SCH (08:10)
[2018-10-14] MEDS: CLOPIDOGREL BISULFATE 75 MG TAB PO SCH (08:10)
[2018-10-14] MEDS: ATORVASTATIN CALCIUM 20 MG TAB PO SCH (08:10)
[2018-10-14] MEDS: ARIPiprazole 10 MG TAB PO SCH (08:37)
[2018-10-14] MEDS ORDERED: FLUTICASONE 110 MCG IH SCH (09:00)
--- NOTE | 2018-10-14 10:38 | ASMTCMCOM ---
CM Note CM Note Notes: Pts case discussed with Dr. Hernandez. Pt is being d/c'd today. CM met w/ pt for dispo planning. Pt is requesting for a detention bed. CM provided pt w/ a bus pass. No other needs at this time. Pt reports that he is in the process of getting disability. Pt is holding off on getting involved w/ a work program. CM available for changes. Plan: Independent Date Signed: 10/14/2018 10:11 AM Electronically Signed By:JEFFRY Barcenas
--- NOTE | 2018-10-14 20:49 | GDS ---
[f rep st] DISCHARGE SUMMARY DISCHARGE DIAGNOSES: 1. Chest pain, resolved. 2. Coronary artery disease, status post drug-eluting stent to the left anterior descending in 2017. 3. Hypertension. 4. Schizophrenia. 5. Severe obesity. CONSULTANTS: Kia Hernandez NP, [facility]. HISTORY OF DETAILS: Please see history and physical dated October 13, 2018. In brief, the patient is a 43-year-old male with history of coronary artery disease who recently underwent a drug-eluting stent to his LAD in March 2018, who presented to the hospital with chest pain. He also underwent card iac catheterization in July of 2018 for similar symptoms, which revealed a patent stent and no oth er culprit lesions. Given his recurrent chest pain. He is admitted to the hospital for further ulisses gement. HOSPITAL COURSE: Patient admitted to the cardiac telemetry unit. He had negative troponins. His EK G was nonischemic. I reviewed his angiogram with Dr. Jiménez from the Cardiology service and there were no obvious identifiable lesions to cause angina. Consideration was given to microvascular angina chito jignesh a GI source of his pain. A D-dimer was elevated, so he underwent CT pulmonary angiogram which wa s negative for PE or aortic dissection. Echocardiogram revealed no wall motion abnormality or perica rdial effusion. In addition, he has normal ejection fraction. He was started on Ranexa for possible microvascular angina. This did seem to improve his symptoms and he will continue this at discharge. In addition, we will continue his proton pump inhibitor for possible GI source of his symptoms. On the day of discharge, the patient is hemodynamically stable. Blood pressure 113/84, heart rate 93 , respiratory rate 12. He is 97% on room air. DISPOSITION: [facility]. FOLLOWUP: Dr. Keshav Valerio with [facility]. DISCHARGE MEDICATIONS: Please see [facility] for completed outpatient medication list. New medication s on discharge include Ranexa 500 mg p.o. b.i.d., #60, no refills. He will continue all other outpat ient medications as previously prescribed. /[id number]/MODL
--- NOTE | 2018-10-17 13:39 | CPEKG ---
Test Reason : OPEN Blood Pressure : / mmHG Vent. Rate : 087 BPM Atrial Rate : 088 BPM P-R Int : 167 ms QRS Dur : 100 ms QT Int : 374 ms P-R-T Axes : 053 070 -20 degrees QTc Int : 450 ms Sinus rhythm Probable left ventricular hypertrophy Borderline T abnormalities, inferior leads Confirmed by Linda Zeng ([id number]) on 10/17/2018 1:39:04 PM Referred By: Jennifer Anders Confirmed By:Linda Zeng
--- NOTE | 2018-10-17 13:40 | CPEKG ---
Test Reason : OPEN Blood Pressure : / mmHG Vent. Rate : 104 BPM Atrial Rate : 104 BPM P-R Int : 167 ms QRS Dur : 095 ms QT Int : 344 ms P-R-T Axes : 056 072 -57 degrees QTc Int : 453 ms Sinus tachycardia Probable left ventricular hypertrophy Nonspecific T abnormalities, inferior leads Anterior ST elevation, probably due to LVH Confirmed by Linda Zeng ([id number]) on 10/17/2018 1:40:04 PM Referred By: PHYSICIAN ED Confirmed By:Linda Zeng
== END 2018-10-14 11:15 | disposition home or self-care (01) | DRG 198 ==
LOC: EDUNIT# → F2W 10-13 12:19 → OBSVTOIN 10-13 15:39
PROVIDERS: ADMIT Student in an Organized Health Care Education/Training Program; ATTEND Hospitalist
DX: R07.9 Chest pain, unspecified (principal); I25.10 Atherosclerotic heart disease of native coronary artery without angina pectoris; G47.33 Obstructive sleep apnea (adult) (pediatric); E66.01 Morbid (severe) obesity due to excess calories; Z68.43 Body mass index [BMI] 50.0-59.9, adult; F31.9 Bipolar disorder, unspecified; F20.9 Schizophrenia, unspecified; F43.10 Post-traumatic stress disorder, unspecified; I10 Essential (primary) hypertension; Z95.5 Presence of coronary angioplasty implant and graft; Z59.0 Homelessness; I25.2 Old myocardial infarction; Z87.891 Personal history of nicotine dependence
CPT/HCPCS: 84484-ER; J1650; Q9967

== ENCOUNTER 2018-10-26 14:56 | Emergency (ER) | payer MEDICAID ==
[2018-10-26] MEDS ORDERED: HYOSCYAMINE SULFATE 0.125 MG TAB PO ONE (15:05)
[2018-10-26] MEDS ORDERED: MAG HYDROX/AL HYDROX/SIMETH 30 ML UDCUP PO ONE (15:05)
[2018-10-26] MEDS ORDERED: LIDOCAINE 2% VISCOUS 15 ML UDCUP PO ONE (15:05)
[2018-10-26] MEDS ORDERED: ONDANSETRON 4 MG/2 ML VIAL IVP ONE (15:07)
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
[2018-10-26 15:08] VITALS: BP 140/95
--- NOTE | 2018-10-26 15:11 | CPEKG ---
Test Reason : OPEN Blood Pressure : / mmHG Vent. Rate : 091 BPM Atrial Rate : 091 BPM P-R Int : 171 ms QRS Dur : 097 ms QT Int : 360 ms P-R-T Axes : 043 067 -03 degrees QTc Int : 443 ms Sinus rhythm Borderline T abnormalities, inferior leads Confirmed by Dino Bledsoe ([id number]) on 10/26/2018 3:11:37 PM Referred By: Dino Bledsoe Confirmed By:Dino Bledsoe
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
== END 2018-10-26 16:13 | disposition home or self-care (01) ==
LOC: EDUNIT#
DX: K28.9 Gastrojejunal ulcer, unspecified as acute or chronic, without hemorrhage or perforation (principal); Z59.0 Homelessness
CPT/HCPCS: 84484-ER; 96374; J2405